=== PATIENT | male | born 1935 | race Caucasian/White ===

== ENCOUNTER 2017-05-20 09:02 | Day surgery (SDC) | payer MEDICARE, OTHER ==
[2017-05-16 14:24] VITALS: BMI 29.7
[~2017-05-20 09:02] MED LIST: DEXAMETHASONE SOD PHOSPHATE 10 MG/ML 1 ML VIAL IV ONE; LACTATED RINGERS 1,000 ML IV SCH; LIDOCAINE 1% 20 ML VIAL (10MG/ML) FOR IV START INTRADERMA PRN; ONDANSETRON 4 MG/2 ML VIAL IVP ONE
[2017-05-20 11:06] VITALS: RESP 16; TEMP 97.9
[2017-05-20] MEDS: FLURBIPROFEN 0.03% OPHTH DROPS 2.5 ML BTL OP ONE ×3 (11:06→11:24)
[2017-05-20] MEDS: CYCLOPENTOLATE 1% OPHTH SOLN 2 ML BTL OP ONE ×3 (11:09→11:27)
[2017-05-20] MEDS: PHENYLEPHRINE 10% OPHTH DROPS 5 ML BTL OP ONE ×3 (11:12→11:30)
[2017-05-20] MEDS ORDERED: PROPOFOL 10 MG/ML 20 ML VIAL IV ONE (12:09)
[2017-05-20] MEDS ORDERED: LIDOCAINE 1% INJ 10MG/ML (20 ML MDV) ONE (12:09)
[2017-05-20] MEDS ORDERED: BALANCED SALT IRRIG SOLN COMB2 15 ML IRRIG.SOLN INTRAOCULA ONE (12:13)
[2017-05-20] MEDS ORDERED: HYALURONATE SODIUM INTRAOCULAR 1 EACH SYRINGE (10MG/ML) INTRAOCULA ONE (12:13)
[2017-05-20] MEDS ORDERED: EPINEPHrine (PF) 0.5 ML in BALANCED SALT IRRIG SOLN COMB2 500 ML IRRIGATION ONE (12:14)
--- NOTE | 2017-05-20 12:28 | P.OP ---
Date of Procedure: 05/20/17 Procedure(s) Performed: PREOPERATIVE DIAGNOSIS: Cataract, right eye. POSTOPERATIVE DIAGNOSIS: Cataract, right eye. OPERATION: Phacoemulsification cataract, right eye. DESCRIPTION OF PROCEDURE: The patient was taken to the preoperative holding area. Intravenous Propofol was given so as to bring about adequate sedation. The following mixture was given for local anesthesia: 5 mL of 2% lidocaine, 5 mL of 0.75% Marcaine, and 1 mL of Wydase. Approximately 4 mL was injected in the retrobulbar space of the surgical eye. Additional 1 mL was then directed to the temporal area of the surgical eye. This was performed to allow adequate neurological block of the facial muscles. The patient was revived and then taken into the operative room. The patient was prepped and draped in the usual sterile manner for the operative eye. A lid speculum was put into position. The conjunctiva was resected back from the limbus in the 12 o'clock position. Bleeding was controlled with electrocautery. A #69 blade was then used and a half-thickness scleral incision approximately 1-mm posterior to the limbus was made on bare sclera. This was shelved in the clear cornea using a crescent knife. Next a 15-degree blade was used to make a stab incision at the 3 o' clock position at the corneolimbal interface. Keratome blade was then used and the superior wound was extended into the anterior chamber. Viscoelastic was injected into the anterior chamber and to maintain its form. Next, a cystotome was used and a continuous anterior capsulotomy was made without difficulty. Hydrodissection using a blunt cannula and BSS was performed. Phaco probe was then employed and a groove extending from 12 to 6 o'clock in the lens was created. A Markie wand was used through the stab incision so as to perform a divide and conquer technique. Next an irrigation aspiration probe was utilized and any residual cortex was removed from the eye. Again, viscoelastic was injected into the anterior chamber. An Al posterior chamber lens implant was placed in the cartridge and injected into the anterior chamber without difficulty. The Sin[employer] hook was utilized to spin the lens into position and this was again performed without any difficulty. The irrigation and aspiration probe was again employed and any residual viscoelastic was removed from the eye. Then BSS was injected into the limbal stab incision and the anterior chamber re-inflated. The conjunctiva was reapproximated using electrocautery. One drop of 0.25% Timoptic was placed over the corneal along with TobraDex ophthalmic ointment. Two sterile patches and a Moore eye shield were taped into position. The patient was transported to the recovery room in stable condition. Pathology: none sent Condition: stable Disposition: same day
[2017-05-20 12:45] VITALS: BP 158/73; PULSE 63
[2017-05-20] MEDS ORDERED: TIMOLOL 0.5% OPHTH DROPS 5 ML BTL OP ONE (23:00)
[2017-05-20] MEDS ORDERED: GENTAMICIN/PREDNISOL AC OPHTH OINT 3.5GM OPHTHALMIC ONE (23:00)
[2017-05-20] MEDS ORDERED: BUPIVACAINE (PF) 0.75% 5 ML, HYALURONIDASE, HUMAN RECOMB 150 UNIT, LIDOCAINE 2% (PF) 10... MISCELLANE ONE ×3 (23:00)
== END 2017-05-20 13:05 | disposition home or self-care (01) ==
LOC: OR 09:02
PROVIDERS: ATTEND Ophthalmology
DX: H26.9 Unspecified cataract (principal); I10 Essential (primary) hypertension; M19.90 Unspecified osteoarthritis, unspecified site; Z85.46 Personal history of malignant neoplasm of prostate; Z95.5 Presence of coronary angioplasty implant and graft; I25.2 Old myocardial infarction; I25.10 Atherosclerotic heart disease of native coronary artery without angina pectoris; Z87.891 Personal history of nicotine dependence; Z79.82 Long term (current) use of aspirin; Z79.899 Other long term (current) drug therapy
CPT/HCPCS: 66984; V2632; J3470; J2001 ×2; J0171; J2704

== ENCOUNTER 2017-07-01 07:40 | Day surgery (SDC) | payer MEDICARE, OTHER ==
[2017-06-26 09:45] VITALS: BMI 30.1
[~2017-07-01 07:40] MED LIST changes: -DEXAMETHASONE SOD PHOSPHATE 10 MG/ML 1 ML VIAL IV ONE; -ONDANSETRON 4 MG/2 ML VIAL IVP ONE
[2017-07-01] MEDS: CYCLOPENTOLATE 1% OPHTH SOLN 2 ML BTL OP ONE ×3 (08:22→08:42)
[2017-07-01] MEDS: FLURBIPROFEN 0.03% OPHTH DROPS 2.5 ML BTL OP ONE ×3 (08:25→08:45)
[2017-07-01 08:27] VITALS: RESP 16; TEMP 98.1
[2017-07-01] MEDS: PHENYLEPHRINE 10% OPHTH DROPS 5 ML BTL OP ONE ×3 (08:29→08:48)
[2017-07-01] MEDS ORDERED: PROPOFOL 10 MG/ML 20 ML VIAL IV ONE (09:19)
[2017-07-01] MEDS ORDERED: LIDOCAINE 1% INJ 10MG/ML (20 ML MDV) ONE (09:19)
[2017-07-01] MEDS ORDERED: EPINEPHrine (PF) 0.5 ML in BALANCED SALT IRRIG SOLN COMB2 500 ML IRRIGATION ONE (09:24)
[2017-07-01] MEDS ORDERED: BALANCED SALT IRRIG SOLN COMB2 15 ML IRRIG.SOLN INTRAOCULA ONE (09:26)
[2017-07-01] MEDS ORDERED: HYALURONATE SODIUM INTRAOCULAR 1 EACH SYRINGE (10MG/ML) INTRAOCULA ONE (09:26)
--- NOTE | 2017-07-01 09:43 | P.OP ---
Date of Procedure: 07/01/17 Procedure(s) Performed: PREOPERATIVE DIAGNOSIS: Cataract, left eye. POSTOPERATIVE DIAGNOSIS: Cataract, left eye. OPERATION: Phacoemulsification cataract, left eye. DESCRIPTION OF PROCEDURE: The patient was taken to the preoperative holding area. Intravenous Propofol was given so as to bring about adequate sedation. The following mixture was given for local anesthesia: 5 mL of 2% lidocaine, 5 mL of 0.75% Marcaine, and 1 mL of Wydase. Approximately 4 mL was injected in the retrobulbar space of the surgical eye. Additional 1 mL was then directed to the temporal area of the surgical eye. This was performed to allow adequate neurological block of the facial muscles. The patient was revived and then taken into the operative room. The patient was prepped and draped in the usual sterile manner for the operative eye. A lid speculum was put into position. The conjunctiva was resected back from the limbus in the 12 o'clock position. Bleeding was controlled with electrocautery. A #69 blade was then used and a half-thickness scleral incision approximately 1-mm posterior to the limbus was made on bare sclera. This was shelved in the clear cornea using a crescent knife. Next a 15-degree blade was used to make a stab incision at the 3 o' clock position at the corneolimbal interface. Keratome blade was then used and the superior wound was extended into the anterior chamber. Viscoelastic was injected into the anterior chamber and to maintain its form. Next, a cystotome was used and a continuous anterior capsulotomy was made without difficulty. Hydrodissection using a blunt cannula and BSS was performed. Phaco probe was then employed and a groove extending from 12 to 6 o'clock in the lens was created. A Markie wand was used through the stab incision so as to perform a divide and conquer technique. Next an irrigation aspiration probe was utilized and any residual cortex was removed from the eye. Again, viscoelastic was injected into the anterior chamber. An Al posterior chamber lens implant was placed in the cartridge and injected into the anterior chamber without difficulty. The [employer] hook was utilized to spin the lens into position and this was again performed without any difficulty. The irrigation and aspiration probe was again employed and any residual viscoelastic was removed from the eye. Then BSS was injected into the limbal stab incision and the anterior chamber re-inflated. The conjunctiva was reapproximated using electrocautery. One drop of 0.25% Timoptic was placed over the corneal along with TobraDex ophthalmic ointment. Two sterile patches and a Moore eye shield were taped into position. The patient was transported to the recovery room in stable condition. Pathology: none sent Condition: stable Disposition: same day
[2017-07-01 09:58] VITALS: BP 134/82; PULSE 72
[2017-07-01] MEDS ORDERED: BUPIVACAINE (PF) 0.75% 5 ML, HYALURONIDASE, HUMAN RECOMB 150 UNIT, LIDOCAINE 2% (PF) 10... MISCELLANE ONE ×3 (23:00)
[2017-07-01] MEDS ORDERED: GENTAMICIN/PREDNISOL AC OPHTH OINT 3.5GM OPHTHALMIC ONE (23:00)
[2017-07-01] MEDS ORDERED: TIMOLOL 0.5% OPHTH DROPS 5 ML BTL OP ONE (23:00)
== END 2017-07-01 10:15 | disposition home or self-care (01) ==
LOC: OR 07:40
PROVIDERS: ATTEND Ophthalmology
DX: H25.12 Age-related nuclear cataract, left eye (principal); I25.10 Atherosclerotic heart disease of native coronary artery without angina pectoris; M19.90 Unspecified osteoarthritis, unspecified site; E78.5 Hyperlipidemia, unspecified; I10 Essential (primary) hypertension; Z85.46 Personal history of malignant neoplasm of prostate; K21.9 Gastro-esophageal reflux disease without esophagitis; Z95.5 Presence of coronary angioplasty implant and graft; Z79.899 Other long term (current) drug therapy; Z79.82 Long term (current) use of aspirin; Z87.891 Personal history of nicotine dependence
CPT/HCPCS: 66984; V2632; J3470; J2001 ×2; J0171; J2704

== ENCOUNTER → 2019-01-22 | Outpatient (CLI) | payer MEDICARE, OTHER ==
[2019-01-22 11:47] LABS: African American GFR (CKD) >90 (>60 ml/min/1.73 sqM); Anion Gap 9 mmol/L; Blood Urea Nitrogen 23 mg/dL (9-20); Calcium 9.3 mg/dL (8.4-10.2); Carbon Dioxide 27 mmol/L (22-30); Chloride 104 mmol/L (98-107); Glucose 109 mg/dL (74-99); Non-African American GFR(CKD) 80 (>60 ml/min/1.73 sqM); Potassium 3.6 mmol/L (3.5-5.1); Sodium 140 mmol/L (137-145)
[2019-01-22 12:07] LABS: Basophils % (A) 0 %; Eosinophils # (A) 0.1 k/uL (0-0.7); Eosinophils % (A) 2 %; HCT 39.7 % (39.0-53.0); HGB 13.6 gm/dL (13.0-17.5); Lymphocytes # (A) 0.7 k/uL (1.0-4.8); Lymphocytes % (A) 15 %; MCH 28.6 pg (25.0-35.0); MCHC 34.4 g/dL (31.0-37.0); MCV 83.3 fL (80.0-100.0); Mean Platelet Volume 8.2; Monocytes # (A) 0.2 k/uL (0-1.0); Monocytes % (A) 5 %; Neutrophils # (A) 3.4 k/uL (1.3-7.7); Neutrophils % (A) 76 %; Platelet Count 115 k/uL (150-450); RBC 4.76 m/uL (4.30-5.90); RDW 14.3 % (11.5-15.5); WBC 4.4 k/uL (3.8-10.6)
[2019-01-22 12:29] LABS: Appearance,Urine Cloudy (Clear); Bilirubin,Urine Negative (Negative); Blood,Urine Large (Negative); Color,Urine Yellow; Glucose,Urine (UA) Negative (Negative); Hyaline Casts,Urine 3 /lpf (0-2); Ketones,Urine Negative (Negative); Leukocyte Esterase,Urine Trace (Negative); Mucus,Urine Rare /hpf; Nitrite,Urine Negative (Negative); Protein,Urine 2+ (Negative); RBC,Urine >182 /hpf (0-5); Specific Gravity,Urine 1.019 (1.001-1.035); Urobilinogen,Urine <2.0 mg/dL (<2.0); WBC,Urine 8 /hpf (0-5)
== END ==
LOC: LABPAT 10:45
PROVIDERS: ATTEND Urology
DX: Z01.812 Encounter for preprocedural laboratory examination (principal); N35.014 Post-traumatic urethral stricture, male, unspecified; R31.0 Gross hematuria
CPT/HCPCS: 80048; 81001; 85025; 87086

== ENCOUNTER → 2019-01-25 | Day surgery (SDC) | payer MEDICARE, OTHER ==
--- NOTE | 2019-01-24 19:49 | P.GSHP ---
History of Present Illness H&P Date: 01/24/19 83 yo male recently was seen at [facility] er for urine retention. I was unable to pass anything into his bladder transurethrally even under cystoscopic guidance. I ended up placing a sp tube he has a history of ebrt for prostate cancer several years ago He has been having problems for a couple of months. He comes for an anesthetic cystoscopy and hopeful reestablishment of a urethral channel. He understands that if I cannot I will have to place a more permanent suprapubic tube with eventual referral to a reconstructive surgeon - Constitutional Constitutional: Denies chills, Denies fever - EENT Eyes: denies blurred vision, denies pain Ears, nose, mouth and throat: Denies headache, Denies sore throat - Cardiovascular Cardiovascular: Denies chest pain, Denies shortness of breath - Respiratory Respiratory: Denies cough, Denies 7 - Gastrointestinal Gastrointestinal: Denies abdominal pain, Denies diarrhea, Denies nausea, Denies vomiting - Genitourinary (Female) Genitourinary: Denies dysuria, Denies hematuria - Genitourinary (Male) Genitourinary: Denies dysuria, Denies hematuria - Musculoskeletal Musculoskeletal: Denies myalgias - Integumentary Integumentary: Denies pruritus, Denies rash - Neurological Neurological: Denies numbness, Denies weakness - Psychiatric Psychiatric: Denies anxiety, Denies depression - Endocrine Endocrine: Denies fatigue, Denies weight change Past Medical History Past Medical History: Coronary Artery Disease (CAD), Cancer, Chest Pain / Angina, Eye Disorder, GERD/Reflux, Hyperlipidemia, Memory Impairment, Myocardial Infarction ([place]), Osteoarthritis (OA) Additional Past Medical History / Comment(s): SUPRA PUBIC CATH PLACE IN @ [facility] ON 01/19/19. Prostate Cancer 3 yrs ago, cataracts. Last Myocardial Infarction Date:: 1994 History of Any Multi-Drug Resistant Organisms: None Reported Past Surgical History: Heart Catheterization With Stent, Orthopedic Surgery Additional Past Surgical History / Comment(s): LEFT CATARACT & IMPLANT ON 07/01/17.LEFT HAND SX. "whole in esophageous repaired. 4 stents put in heart." Past Anesthesia/Blood Transfusion Reactions: No Reported Reaction Date of Last Stent Placement:: 01/14/14 Past Psychological History: No Psychological Hx Reported Smoking Status: Former smoker Past Alcohol Use History: None Reported Additional Past Alcohol Use History / Comment(s): Quit smoking in 1966. STATES STOPPED DRINKING 31 yrs ago. Past Drug Use History: None Reported - Past Family History Mother Family Medical History: Cancer Additional Family Medical History / Comment(s): LEUKEMIA Father Family Medical History: Cancer Additional Family Medical History / Comment(s): LUNG Medications and Allergies Home Medications Medication Instructions Recorded Confirmed Type Simvastatin [Zocor] 20 mg PO 1200 01/12/14 01/22/19 History Isosorbide Dinitrate 10 mg PO BID 01/14/14 01/22/19 History Nitroglycerin Sl Tabs [Nitrostat] 0.4 mg SUBLINGUAL Q5M PRN #25 tab 01/15/14 01/22/19 Rx Metoprolol Succinate (ER) [Toprol 25 mg PO HS 05/16/17 01/22/19 History Xl] Tamsulosin [Flomax] 0.4 mg PO BID 05/16/17 01/22/19 History Multivitamins, Thera [Multivitamin 1 tab PO DAILY 01/22/19 01/22/19 History (formulary)] Omeprazole 20 mg PO 1200 01/22/19 01/22/19 History Allergies Allergy/AdvReac Type Severity Reaction Status Date / Time No Known Allergies Allergy Verified 01/22/19 12:43 Surgical - Exam - General well developed, well nourished, no distress - Eyes PERRL - ENT no hearing loss - Neck trachea midline - Respiratory normal expansion, normal respiratory effort - Cardiovascular Rhythm: regular - Abdomen suprapubic tube Abdomen: soft, non tender - Genitourinary normal penis with no external lesions, testicles present - Integumentary no rash - Neurologic normal coordination, normal sensation - Musculoskeletal normal gait, normal posture - Psychiatric oriented to time, oriented to person, oriented to place, speech is normal, memory intact Assessment and Plan Assessment: Impression: Urine retention due to presumed urethral stricture. Prostate cancer sp ebrt Plan: cysto with hopeful dviu. Possible permanent sp tube
[~2019-01-25] MED LIST changes: +AMPICILLIN 1,000 MG in SODIUM CHLORIDE 0.9% 50 ML IVPB ONE; +DEXAMETHASONE SOD PHOSPHATE 10 MG/ML 1 ML VIAL IV ONE; +GENTAMICIN 110 MG in SODIUM CHLORIDE 0.9% 100 ML IVPB ONE; +HYDROmorphone 0.5 MG/0.5 ML SYRINGE IVP PRN; +LIDOCAINE 1% 20 ML VIAL (10MG/ML) FOR IV START INTRADERMA ONE; -LIDOCAINE 1% 20 ML VIAL (10MG/ML) FOR IV START INTRADERMA PRN; +LIDOCAINE 1% INJ 10MG/ML (20 ML MDV) ONE; +MIDAZOLAM 2 MG/2 ML VIAL IV PRN; +MIDAZOLAM 2 MG/2 ML VIAL ONE; +ONDANSETRON 4 MG/2 ML VIAL IVP ONE; +PROPOFOL 10 MG/ML 20 ML VIAL IV ONE; +SUCCINYLCHOLINE CHLORIDE 100 MG/5 ML SYR IV ONE; +fentaNYL (PF) 50 MCG/ML 2 ML AMP ONE
[2019-01-25 13:32] VITALS: RESP 16
--- NOTE | 2019-01-25 14:41 | P.OP ---
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 He was in [facility] emergency room recently with urine retention. I was unable to pass a urethral catheter even under cystoscopic direction. He has a history of radiation therapy for prostate cancer. He has been having problems urinating over the last month. It is been 5 days since the emergency room visit. Hopefully the edema settle down and that we'll be able to identify urethral passage and do a direct vision internal urethrotomy Description of Procedure: Patient brought the operating suite. He is given a general endotracheal anesthesia. He's placed lithotomy position with sterile prep and drape. Under direct vision the 20-Kyrgyz sheath for the direct vision urethrotome was introduced in urethra. With the Foroblique lens and passed into the deep bulbar urethra and there is a stricture that is identified. Through the stricture no 35 wires passed into the bladder. I then make a cut at 12:00 in the proximal bulbar urethra. I then pass into the bladder. He's had a previous TURP. There is some vesicle neck contracture that is mild. I am of the bladder and there is catheter edema from the suprapubic tube. I then back into the urethrotomy site and cut to make sure the cut is deep enough. I then remove the urethrotome. I passed an 18-Kyrgyz Zazueta catheter in the bladder with clear urine return. A irrigate freely. I removed the suprapubic tube. The suprapubic tube will remain in approximately 1 week and I'll remove the office.
[2019-01-25 14:46] VITALS: TEMP 98
[2019-01-25 15:57] VITALS: BP 156/88; PULSE 79
== END | disposition home or self-care (01) ==
LOC: OR 13:00
PROVIDERS: ATTEND Urology
DX: N35.011 Post-traumatic bulbous urethral stricture (principal); E78.5 Hyperlipidemia, unspecified; K21.9 Gastro-esophageal reflux disease without esophagitis; I10 Essential (primary) hypertension; R41.3 Other amnesia; I25.10 Atherosclerotic heart disease of native coronary artery without angina pectoris; M19.90 Unspecified osteoarthritis, unspecified site; I25.2 Old myocardial infarction; Z85.46 Personal history of malignant neoplasm of prostate; Z92.3 Personal history of irradiation; Z95.5 Presence of coronary angioplasty implant and graft; Z98.42 Cataract extraction status, left eye; Z96.1 Presence of intraocular lens; Z87.891 Personal history of nicotine dependence; Z80.6 Family history of leukemia; Z80.1 Family history of malignant neoplasm of trachea, bronchus and lung; Z79.899 Other long term (current) drug therapy; N35.014 Post-traumatic urethral stricture, male, unspecified
CPT/HCPCS: 52276; C1769; J2250; J1100; J2405; J2001; J3010; J1580; J0330; J2704

== ENCOUNTER → 2019-05-14 | Day surgery (SDC) | payer MEDICARE, OTHER | CPT/HCPCS: 88305; 43239; J2001; J2704 ==

== ENCOUNTER → 2019-12-30 | Outpatient (CLI) | payer MEDICARE, OTHER ==
--- NOTE | 2019-12-30 15:43 | CT ---
EXAMINATION TYPE: CT angio neck DATE OF EXAM: 12/30/2019 COMPARISON: None HISTORY: 84-year-old male headache and dizziness TECHNIQUE: Contiguous axial scanning of the neck performed with IV Contrast, patient injected with 65 mL of Isovue 370. Coronal/sagittal MIP reconstructions performed. 3-D reconstructions generated on a dedicated independent workstation. CT DLP: 344.9 mGycm Automated exposure control for dose reduction was used. FINDINGS: Tiny calcified granuloma at the right apex. Mild to moderate atherosclerotic calcifications aortic arch with conventional arch vessel branching a natomy. The cervical vertebral arteries are codominant and patent throughout the course. However, the V4 segment right vertebral artery shows moderate irregular narrowing throughout. Possibl e more severe focal narrowing along its midportion. The right common carotid artery is patent. Minimal atherosclerotic changes at the right carotid bifurcation. Tortuous upper right ICA taking a retropharyngeal course. No significant stenosis. Mild atherosclerot ic narrowing within the intracranial carotid siphon. Left common carotid artery is patent. However, severe atherosclerotic plaque and calcification at the left carotid bifurcation resulting in severe, 90% stenosis at the left ICA origin and also severe narrowing at the left ECA origin. The remainder of the left common carotid artery is patent though there is moderate atherosclerotic na rrowing throughout the left carotid siphon. The left carotid bifurcation occurs 3 cm below the angle of the mandible. Diffusely heterogeneous and bulky thyroid gland. This can be further evaluated with dedicated thyroid ultrasound. There is suggestion of a heterogeneous 2.4 cm nodule posteriorly in the left lobe. Bulky anterior endplate spondylosis from C4 through C7 levels impressing on to the posterior wall of the cervical esophagus. IMPRESSION: 1. 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 ADDITIONAL SEVERE NARROWING AT THE LEFT ECA ORIGIN. 2. MODERATE IRREGULAR NARROWING OF THE V4 (INTRACRANIAL) SEGMENT RIGHT VERTEBRAL ARTERY POSSIBLY WITH A MORE SEVERE SHORT SEGMENT STENOSIS OF ITS MID PORTION.
== END | disposition home or self-care (01) ==
LOC: RADCTMAIN 12:48
PROVIDERS: ATTEND Internal Medicine Cardiovascular Disease
DX: I65.22 Occlusion and stenosis of left carotid artery (principal); I65.01 Occlusion and stenosis of right vertebral artery; I25.10 Atherosclerotic heart disease of native coronary artery without angina pectoris
CPT/HCPCS: 82565; 84520; 70498; 36415; Q9967

== ENCOUNTER 2020-01-19 12:30 | Inpatient (IN) | payer MEDICARE, OTHER ==
[2020-01-21 09:49] VITALS: BMI 29.4
[2020-01-25] MEDS ORDERED: SODIUM CHLORIDE 0.9% 1,000 ML in EMPTY BAG 1 BAG IV ONE (07:11)
[2020-01-25] MEDS ORDERED: NITROGLYCERIN SL TABS 0.4 MG TAB SUBLINGUAL PRN ×2 (07:11→12:29)
[2020-01-25] MEDS ORDERED: ASPIRIN 325 MG TAB PO PRN (07:11)
[2020-01-25] MEDS ORDERED: CLOPIDOGREL 75 MG TAB PO PRN (07:11)
[2020-01-25] MEDS ORDERED: SODIUM CHLORIDE 0.9% 1,000 ML IV ONE (08:58)
[2020-01-25 09:10] LABS: Basophils % (A) 0 %; Eosinophils # (A) 0.2 k/uL (0-0.7); Eosinophils % (A) 3 %; HGB 15.4 gm/dL (13.0-17.5); Lymphocytes # (A) 1.2 k/uL (1.0-4.8); Lymphocytes % (A) 22 %; MCH 28.2 pg (25.0-35.0); MCHC 34.3 g/dL (31.0-37.0); MCV 82.1 fL (80.0-100.0); Mean Platelet Volume 8.9; Monocytes # (A) 0.4 k/uL (0-1.0); Monocytes % (A) 6 %; Neutrophils # (A) 3.7 k/uL (1.3-7.7); Neutrophils % (A) 66 %; Platelet Count 147 k/uL (150-450); RBC 5.47 m/uL (4.30-5.90); RDW 13.8 % (11.5-15.5); WBC 5.5 k/uL (3.8-10.6)
[2020-01-25 09:36] LABS: Calcium 9.2 mg/dL (8.4-10.2); Potassium 4.3 mmol/L (3.5-5.1)
[2020-01-25] MEDS ORDERED: CLOPIDOGREL 75 MG TAB PO STA (10:09)
[2020-01-25] MEDS ORDERED: LIDOCAINE 1% INJ 10MG/ML (20 ML MDV) SQ ONE (11:16)
[2020-01-25] MEDS ORDERED: HEPARIN SODIUM 1,000 UN/ML (10ML VL) IV ONE (11:24)
[2020-01-25] MEDS ORDERED: NITROGLYCERIN 1000MCG/10ML SYRINGE INTRAARTER ONE (12:16)
[2020-01-25] MEDS ORDERED: RX INFO: IV CONTRAST WAS GIVEN 1 EACH MISC MISCELLANE PRN (12:30)
[2020-01-25] MEDS ORDERED: SODIUM CHLORIDE 0.9% 1,000 ML IV SCH (12:30)
[2020-01-25] MEDS ORDERED: MAG HYDROX/AL HYDROX/SIMETH 30 ML CUP PO PRN (12:30)
[2020-01-25] MEDS ORDERED: ATROPINE SULFATE 0.1 MG/ML 10ML SYRINGE IV PRN (12:30)
[2020-01-25] MEDS ORDERED: IOPAMIDOL-370 125ML BTL INJ ONE (12:38)
--- NOTE | 2020-01-25 15:43 | PCN ---
PROCEDURE NOTE CAROTID STENT PROCEDURE: PERFORMING PHYSICIAN: Tim Sotelo M.D. PROCEDURE PERFORMED: 1. Successful stenting of the left internal carotid artery using an 8-6 mm by 30 mm Xact self-expandable stent with adjunctive use of Emboshield NAV6 distal protection filter. 2. Successful stenting of the left common carotid artery using 7.0 x 30 and 7.0 x 59 mm stents with good angiographic results. 3. Selective left internal and left common carotid artery angiogram. 4. Aortic arch angiogram. INDICATION: This is an 84-year-old gentleman who sees Dr. 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 APPROACH: Right common femoral artery. COMPLICATIONS: Dissection of the left common carotid artery which was stabilized using 2 stents. LEVEL OF SEDATION: The patient's procedure was performed without any sedation, with a procedure length of 72 minutes. PROCEDURE DESCRIPTION: After obtaining informed consent, the patient was brought to the cardiac geophysical laboratory chief. The right common femoral artery was cannulated using micropuncture technique. The micropuncture wire passed easily. Then I placed a 70 cm 6-Thai sheath in the right common femoral artery all the way to the descending aorta. That was performed over an 0.035 stiff Glidewire. Subsequently I did an aortic arch angiogram using a 5-Thai pigtail catheter. The aortic arch angiogram revealed a calcified arch with type 2 arch. Subsequently anticoagulation was achieved using heparin. The patient was given a total of 10,000 units of heparin with continuous ACT monitoring throughout the procedure. Subsequently I engaged the left common carotid artery using a JB2 catheter. After that it was wired using an 0.035 stiff Glidewire. After that I advanced the sheath over the wire and JB2 catheter all the way to the mid left common carotid artery. 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 Because the patient was asymptomatic, I decided to stent the left internal carotid artery first. So I did place a 5 mm Emboshield NAV6 distal protection filter. Subsequently I did predilatation using a 4 mm balloon and then I deployed the Xact 8-6 x 30 mm self-expandable stent where the stent was positioned under fluoroscopic guidance and deployed under fluoroscopic guidance. Post dilatation was performed using a 5 x 20 mm balloon. The following angiogram showed good angiographic results. For the left common carotid artery where the dissection was, I deployed initially a 7 x 30 mm Acculink self-expandable stent. The stent was again positioned under fluoroscopic guidance and deployed under fluoroscopic guidance. The following angiogram showed an area of dissection just proximal to the stent, on which I decided to use this time a balloon-expandable stent. I used a 7 x 59 mm Omnilink. The second stent was deployed under fluoroscopic guidance as well. The following angiogram showed good angiographic results, and the procedure at that point was completed without any complication. POST-PROCEDURE MANAGEMENT: 1. Dual anti-platelet therapy. 2. Risk factor modifications. 3. Follow up with the patient. MMARLEN / PATRICIAN: [id number] /
--- NOTE | 2020-01-25 16:57 | IR ---
EXAMINATION TYPE: IR angio carotid cerv LT DATE OF EXAM: 01/25/2020 COMPARISON: CTA neck 12/30/2019 HISTORY: Left carotid stenosis TECHNIQUE: Fluoroscopy. FINDINGS: Fluoroscopic guidance was provided during procedure performed by Dr. Sotelo. A total of 20. 7 minutes of fluoroscopic time was utilized during the procedure and 778 images were acquired. Please see operative report for additional details. IMPRESSION: As Above.
[2020-01-25] MEDS: ISOSORBIDE DINITRATE 10 MG TAB PO SCH (20:30)
[2020-01-25] MEDS ORDERED: ATORVASTATIN 40 MG TAB PO SCH (21:00)
[2020-01-26 03:28] VITALS: RESP 18
[2020-01-26 08:54] VITALS: PULSE 83; TEMP 97.5
[2020-01-26] MEDS: ISOSORBIDE DINITRATE 10 MG TAB PO SCH (08:56)
[2020-01-26] MEDS ORDERED: MULTIVITAMINS, THERA 1 EACH TAB PO SCH (09:00)
[2020-01-26] MEDS ORDERED: ASPIRIN 325 MG TAB PO SCH (09:00)
[2020-01-26] MEDS ORDERED: TAMSULOSIN 0.4 MG CAP.ER.24H PO SCH (09:00)
[2020-01-26] MEDS ORDERED: ASPIRIN 81 MG PO SCH (09:00)
[2020-01-26 09:04] VITALS: BP 150/62
[2020-01-26 10:15] LABS: Basophils % (A) 0 %; Eosinophils # (A) 0.2 k/uL (0-0.7); Eosinophils % (A) 3 %; HCT 40.4 % (39.0-53.0); HGB 13.7 gm/dL (13.0-17.5); Lymphocytes # (A) 0.7 k/uL (1.0-4.8); Lymphocytes % (A) 12 %; MCV 82.3 fL (80.0-100.0); Monocytes # (A) 0.3 k/uL (0-1.0); Monocytes % (A) 6 %; Neutrophils # (A) 4.6 k/uL (1.3-7.7); Neutrophils % (A) 77 %; Platelet Count 125 k/uL (150-450); RDW 13.9 % (11.5-15.5); WBC 5.9 k/uL (3.8-10.6)
[2020-01-26 10:18] LABS: Calcium 9.1 mg/dL (8.4-10.2); Potassium 4.2 mmol/L (3.5-5.1)
--- NOTE | 2020-01-26 10:57 | DS ---
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 He underwent yesterday successful stenting of the left internal and left common carotid artery with an excellent angiographic results and without any complication from right groin approach. The patient was seen this morning. He is asymptomatic. He is going to be discharged on dual anti-platelet therapy along with high intensity statin and will follow up with the patient in the office. MMODL / IJN: [id number] /
[2020-01-26] MEDS ORDERED: PANTOPRAZOLE 40 MG TABLET PO SCH (12:00)
[2020-01-26] MEDS ORDERED: NON FORMULARY DRUG (Simvastatin [Zocor] 20 MG Tablet) PO SCH (12:00)
[2020-01-26] MEDS ORDERED: CLOPIDOGREL 75 MG TAB PO SCH (12:30)
== END 2020-01-26 11:03 | disposition home or self-care (01) | DRG 34 ==
LOC: 2ORMAIN 01-25 08:44 → 3SCARD 01-25 16:47
PROVIDERS: ADMIT Internal Medicine Interventional Cardiology; ATTEND Internal Medicine Interventional Cardiology
PROC: B3141ZZ Fluoroscopy of Left Common Carotid Artery using Low Osmolar Contrast (ICD-10-PCS; principal; 2020-01-25 10:30)
PROC: 037J3DZ Dilation of Left Common Carotid Artery with Intraluminal Device, Percutaneous Approach (ICD-10-PCS; principal; 2020-01-25 10:30)
PROC: B3171ZZ Fluoroscopy of Left Internal Carotid Artery using Low Osmolar Contrast (ICD-10-PCS; principal; 2020-01-25 10:30)
PROC: 037L3DZ Dilation of Left Internal Carotid Artery with Intraluminal Device, Percutaneous Approach (ICD-10-PCS; principal; 2020-01-25 10:30)
DX: I65.22 Occlusion and stenosis of left carotid artery (principal); I77.71 Dissection of carotid artery; I97.89 Other postprocedural complications and disorders of the circulatory system, not elsewhere classified; I25.10 Atherosclerotic heart disease of native coronary artery without angina pectoris; I10 Essential (primary) hypertension; E78.5 Hyperlipidemia, unspecified; E78.00 Pure hypercholesterolemia, unspecified; Z79.899 Other long term (current) drug therapy
CPT/HCPCS: 80048; 85025

== ENCOUNTER 2020-09-02 13:18 | Emergency (ER) | payer MEDICARE, OTHER ==
[2020-09-02 13:25] VITALS: BP 126/89; PULSE 88; RESP 16; TEMP 97.5
[2020-09-02] MEDS ORDERED: DIPH,PERTUS(ACELL)TETVAC-LF 0.5 ML VIAL IM ONE (13:30)
[2020-09-02] MEDS ORDERED: BACITRACIN OINT 1 EACH PACKET TOPICAL ONE (13:30)
--- NOTE | 2020-09-02 14:00 | ED ---
Fall HPI - General Chief Complaint: Fall Stated Complaint: fall Time Seen by Provider: 09/02/20 13:25 Source: patient, RN notes reviewed Mode of arrival: ambulatory Limitations: no limitations - History of Present Illness Initial Comments: This is a 85-year-old male presents emergency Department chief complaint of fall. Patient states she is walking down a steep health rocks in which he slipped. Patient states he stumbled approximately 10 feet. Patient states that he is unsure when his last tetanus was. Patient has multiple abrasions, superficial lacerations. Patient complains of headache, facial discomfort, bilateral hand pain, right hip pain, left knee pain he was able to ambulate there was no loss conscious. No chest pain or shortness breath. - Related Data Home Medications Medication Instructions Recorded Confirmed Simvastatin [Zocor] 20 mg PO 1200 01/12/14 01/25/20 Isosorbide Dinitrate 10 mg PO BID 01/14/14 01/25/20 Metoprolol Succinate (ER) [Toprol 25 mg PO HS 05/16/17 01/25/20 XL] Tamsulosin [Flomax] 0.4 mg PO DAILY 05/16/17 01/25/20 Multivitamins, Thera [Multivitamin 1 tab PO DAILY 01/22/19 01/25/20 (formulary)] Omeprazole 20 mg PO 1200 01/22/19 01/25/20 Aspirin [Adult Low Dose Aspirin EC] 81 mg PO DAILY 01/21/20 01/25/20 Previous Rx's Medication Instructions Recorded Nitroglycerin Sl Tabs [Nitrostat] 0.4 mg SUBLINGUAL Q5M PRN #25 tab 01/15/14 Clopidogrel Bisulfate [Plavix] 75 mg PO DAILY #90 tab 01/26/20 Allergies Allergy/AdvReac Type Severity Reaction Status Date / Time No Known Allergies Allergy Verified 09/02/20 13:21 Review of Systems ROS Statement: Those systems with pertinent positive or pertinent negative responses have been documented in the HPI. ROS Other: All systems not noted in ROS Statement are negative. Past Medical History Past Medical History: Coronary Artery Disease (CAD), Cancer, Chest Pain / Angina, GERD/Reflux, Hyperlipidemia, Memory Impairment, Myocardial Infarction ([place]), Osteoarthritis (OA) Additional Past Medical History / Comment(s): hx Prostate Cancer, PT rt shoulder r/t injury. 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 LEFT HAND SX. "whole in esophageal repair. 4 stents put in heart." egd Past Anesthesia/Blood Transfusion Reactions: No Reported Reaction Date of Last Stent Placement:: 01/14/14 Past Psychological History: No Psychological Hx Reported Smoking Status: Former smoker - Past Family History Mother Family Medical History: Cancer Additional Family Medical History / Comment(s): LEUKEMIA Father Family Medical History: Cancer Additional Family Medical History / Comment(s): LUNG General Exam Limitations: no limitations General appearance: alert, in no apparent distress Head exam: Present: atraumatic, normocephalic, normal inspection, other (Multiple facial abrasions noted) Eye exam: Present: normal appearance, PERRL, EOMI. Absent: scleral icterus, conjunctival injection, periorbital swelling ENT exam: Present: normal exam, mucous membranes moist Neck exam: Present: normal inspection, full ROM. Absent: tenderness, meningismus, lymphadenopathy Respiratory exam: Present: normal lung sounds bilaterally. Absent: respiratory distress, wheezes, rales, rhonchi, stridor, chest wall tenderness Cardiovascular Exam: Present: regular rate, normal rhythm, normal heart sounds. Absent: systolic murmur, diastolic murmur, rubs, gallop, clicks Extremities exam: Present: other (Bilateral hand superficial lacerations, pain with palpation, full range of motion no wrist or forearm or upper arm tenderness. Mild right hip tenderness the patient is in relating, bearing weight. Abrasions noted to the left knee with mild tenderness minimal swelling remaining extremity exam nml) Course Vital Signs 09/02/20 13:21 Temperature 97.5 F L Pulse Rate 88 Respiratory 16 Rate Blood Pressure 126/89 O2 Sat by Pulse 99 Oximetry Medical Decision Making - Medical Decision Making 85-year-old male presented after a fall down a [employer], [employer]. CT of the brain, C- spine, facial bones were negative for acute abnormality. X-rays were reviewed of the hands, pelvis, left knee with no acute fractures. Patient's wounds were cleaned, dressed. Patient we discharged in stable condition with close follow- up. Disposition Clinical Impression: Fall, Head injury, Multiple abrasions, Contusion of knee, left, Contusion of right hip, Contusion of hand(s) Disposition: HOME SELF-CARE Condition: Stable Instructions (If sedation given, give patient instructions): Head Injury (ED) Additional Instructions: Please return to the Emergency Department if symptoms worsen or any other concerns. Is patient prescribed a controlled substance at d/c from ED?: No Referrals: Talha Spencer MD [Primary Care Provider] - 1-2 days Time of Disposition: 14:31
--- NOTE | 2020-09-02 14:03 | XR ---
EXAMINATION TYPE: XR knee complete LT DATE OF EXAM: 09/02/2020 COMPARISON: NONE HISTORY: Left knee pain after fall TECHNIQUE: Radiographs of the left knee FINDINGS: No acute osseous abnormality. Mild tricompartmental OA. Vascular calcifications. Other tendon enthesophyte. Small joint effusion. IMPRESSION: No acute osseous abnormality.
--- NOTE | 2020-09-02 14:13 | XR ---
EXAMINATION TYPE: XR pelvis AP view DATE OF EXAM: 09/02/2020 COMPARISON: NONE HISTORY: Pain TECHNIQUE: Single view FINDINGS: Pelvic ring is intact. Proximal femurs are intact. Acetabula appear intact. Sacroiliac join ts are intact. IMPRESSION: No acute abnormality of the pelvis. No fracture.
--- NOTE | 2020-09-02 14:16 | CT ---
EXAMINATION TYPE: CT brain haim bowser DATE OF EXAM: 09/02/2020 COMPARISON: None Pain HISTORY: Fall CT DLP: 1261.1 mGycm Automated exposure control for dose reduction was used. There is cerebral cortical atrophy. There is no mass effect nor midline shift. There is no sign of in tracranial hemorrhage. There is mild right frontal scalp soft tissue swelling. There is left posterio r frontal scalp hematoma. This measures up to 8 mm in thickness. The calvarium appears intact. There is normal aeration of the mastoid sinuses. Skull base is intact. The cervical vertebra have normal alignment. There is large anterior osteophyte formation from C4 to T1. There is no evidence of a fracture. Facet joints are intact. IMPRESSION: Cerebral atrophy. No acute intracranial abnormality. Scalp hematoma. Spondylotic changes in the cervical spine. No fracture.
--- NOTE | 2020-09-02 14:20 | XR ---
EXAMINATION TYPE: XR hand complete bilateral DATE OF EXAM: 09/02/2020 COMPARISON: NONE HISTORY: Pain TECHNIQUE: 3 views each hand FINDINGS: There is some narrowing and spurring at the first carpometacarpal joints. There is nondisplaced oblique fracture of the proximal shaft of the left hand fourth metacarpal. Ther e is bilateral narrowing of the IP joint spaces. There is probably hairline oblique fracture of the p roximal shaft of the right hand fifth metacarpal. The carpal bones appear intact. Radiocarpal joints are intact. IMPRESSION: Bilateral metacarpal fractures as above. Mild degenerative hypertrophic changes.
--- NOTE | 2020-09-02 14:23 | CT ---
EXAMINATION TYPE: CT facial bones wo con DATE OF EXAM: 09/02/2020 COMPARISON: None HISTORY: Fall CT DLP: Included in 1261.1 of Brain and C-spine mGycm Automated exposure control for dose reduction was used. Images obtained from the bottom of the mandible to the top of the frontal sinuses without contrast. The mandibular ring is intact. Temporomandibular joints are intact. Zygomatic arches appear normal. T he maxilla is intact. There is small mucus retention cyst anterior right maxillary sinus. There is no evidence of orbital blowout fracture. Orbital margins are intact. There is no retro-orbital mass. The nasal bone appears intact. There is mild frontal scalp soft tissue swelling. There is normal aeration of the mastoid sinuses. Temporal bones are intact. IMPRESSION: No fracture seen. Frontal scalp mild soft tissue swelling.
[2020-09-02] MEDS ORDERED: ACET/COD 300 MG/30 MG STARTER PACK 6 TAB BTL PO STA (14:31)
--- NOTE | 2020-09-02 15:04 | XR ---
EXAMINATION TYPE: XR chest 2V DATE OF EXAM: 09/02/2020 COMPARISON: NONE HISTORY: Chest pain TECHNIQUE: FINDINGS: Heart and mediastinum are within normal limits. Lungs are clear of infiltrate. There are no hilar masses. There is no pleural effusion. Bony thorax is intact. IMPRESSION: No active cardiopulmonary disease.
== END 2020-09-02 15:23 ==
LOC: EC 13:18
DX: S61.412A Laceration without foreign body of left hand, initial encounter (principal); S61.411A Laceration without foreign body of right hand, initial encounter; S70.01XA Contusion of right hip, initial encounter; S00.03XA Contusion of scalp, initial encounter; S80.02XA Contusion of left knee, initial encounter; S00.81XA Abrasion of other part of head, initial encounter; S09.90XA Unspecified injury of head, initial encounter; E78.5 Hyperlipidemia, unspecified; I25.10 Atherosclerotic heart disease of native coronary artery without angina pectoris; I25.2 Old myocardial infarction; K21.9 Gastro-esophageal reflux disease without esophagitis; M19.90 Unspecified osteoarthritis, unspecified site; Z79.82 Long term (current) use of aspirin; W01.0XXA Fall on same level from slipping, tripping and stumbling without subsequent striking against object, initial encounter; Y92.89 Other specified places as the place of occurrence of the external cause; Y93.01 Activity, walking, marching and hiking; Z23 Encounter for immunization
CPT/HCPCS: 70450; 70486; 71046; 72125; 72170; 90471; 90715; 99285

== ENCOUNTER 2021-12-04 13:27 | Observation (INO) | payer MEDICARE, OTHER ==
[2021-12-04 13:42] LABS: Glucose,Whole Blood 130 mg/dL (70-110)
[2021-12-04 13:49] LABS: Basophils % (A) 0 %; Eosinophils # (A) 0.1 k/uL (0-0.7); Eosinophils % (A) 1 %; HCT 41.3 % (39.0-53.0); HGB 14.5 gm/dL (13.0-17.5); Lymphocytes # (A) 0.4 k/uL (1.0-4.8); Lymphocytes % (A) 6 %; MCH 27.9 pg (25.0-35.0); MCHC 35.1 g/dL (31.0-37.0); MCV 79.6 fL (80.0-100.0); Mean Platelet Volume 8.8; Monocytes # (A) 0.3 k/uL (0-1.0); Monocytes % (A) 4 %; Neutrophils # (A) 5.8 k/uL (1.3-7.7); Neutrophils % (A) 88 %; Platelet Count 117 k/uL (150-450); RBC 5.19 m/uL (4.30-5.90); RDW 13.7 % (11.5-15.5); WBC 6.6 k/uL (3.8-10.6)
[2021-12-04 13:58] LABS: ALT 18 U/L (4-49); AST 18 U/L (17-59); African American GFR (CKD) >90 (>60 ml/min/1.73 sqM); Albumin 4.6 g/dL (3.5-5.0); Alkaline Phosphatase 80 U/L (38-126); Anion Gap 14 mmol/L; Blood Urea Nitrogen 18 mg/dL (9-20); Calcium 8.9 mg/dL (8.4-10.2); Carbon Dioxide 25 mmol/L (22-30); Chloride 95 mmol/L (98-107); Glucose 133 mg/dL (74-99); Non-African American GFR(CKD) 78 (>60 ml/min/1.73 sqM); Potassium 4.2 mmol/L (3.5-5.1); Prothrombin Time 11.2 sec (9.0-12.0); Sodium 134 mmol/L (137-145); Total Protein 6.5 g/dL (6.3-8.2)
--- NOTE | 2021-12-04 14:16 | CT ---
EXAMINATION TYPE: CT brain wo con DATE OF EXAM: 12/04/2021 HISTORY: Altered Mental Status CT DLP: 1261.4 mGycm. Automated Exposure Control for Dose Reduction was Utilized. TECHNIQUE: CT scan of the head is performed without contrast. COMPARISON: CT brain September 02, 2020. FINDINGS: There is no acute intracranial hemorrhage or midline shift identified. There is mild to m oderate diffuse ventricular and sulcal prominence consistent with diffuse age-related cerebral atroph y. Dean-white matter differentiation is maintained. The calvarium is intact. 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 Tiny mucous retention cysts and/or polyps in the bilateral maxillary sinuses are noted. Globes ar e intact bilaterally. IMPRESSION: No acute intracranial hemorrhage or midline shift.
--- NOTE | 2021-12-04 14:27 | XR ---
EXAMINATION TYPE: XR chest 1V portable DATE OF EXAM: 12/04/2021 COMPARISON: Chest x-ray September 02, 2020 HISTORY: Altered mental status and weakness. TECHNIQUE: Single AP portable frontal upright view of the chest is obtained. FINDINGS: There is some chronic parenchymal changes in the lung bases. Present. The cardiac silhoue tte size is mildly enlarged. The osseous structures are demineralized. Underlying scoliosis is pres ent. IMPRESSION: Chronic changes and mild cardiomegaly without acute pulmonary process.
[2021-12-04] MEDS ORDERED: MAG HYDROX/AL HYDROX/SIMETH 30 ML CUP PO PRN (14:55)
[2021-12-04] MEDS ORDERED: ACETAMINOPHEN TAB 325 MG TAB PO PRN (14:55)
[2021-12-04] MEDS ORDERED: NALOXONE 0.4 MG/ML 1 ML VIAL IV PRN (14:55)
--- NOTE | 2021-12-04 15:05 | ED ---
General Adult HPI - General Chief complaint: Neuro Symptoms/Deficit Stated complaint: AMS Time Seen by Provider: 12/04/21 13:28 Source: EMS Mode of arrival: EMS Limitations: altered mental status - History of Present Illness Initial comments: This patient is an 86-year-old man brought to have evaluation for altered mental status. Patient reportedly confused and disoriented. The symptoms going on since this morning. On arrival, the patient is able answer simple direct questions. He states that he is not having any pain. No dyspnea. The patient had been on a number of medications, including Keppra and these were reportedly stopped recently to see if they can get to the bottom of his situation. Onset/Timin -: days(s) Severity scale (1-10): 0 Improves with: none Worsens with: none Associated Symptoms: denies other symptoms Treatments Prior to Arrival: none - Related Data Home Medications Medication Instructions Recorded Confirmed Simvastatin [Zocor] 20 mg PO 1200 01/12/14 01/25/20 Isosorbide Dinitrate 10 mg PO BID 01/14/14 01/25/20 Metoprolol Succinate (ER) [Toprol 25 mg PO HS 05/16/17 01/25/20 XL] Tamsulosin [Flomax] 0.4 mg PO DAILY 05/16/17 01/25/20 Multivitamins, Thera [Multivitamin 1 tab PO DAILY 01/22/19 01/25/20 (formulary)] Omeprazole 20 mg PO 1200 01/22/19 01/25/20 Aspirin [Adult Low Dose Aspirin EC] 81 mg PO DAILY 01/21/20 01/25/20 Previous Rx's Medication Instructions Recorded Nitroglycerin Sl Tabs [Nitrostat] 0.4 mg SUBLINGUAL Q5M PRN #25 tab 01/15/14 Clopidogrel Bisulfate [Plavix] 75 mg PO DAILY #90 tab 01/26/20 Allergies Allergy/AdvReac Type Severity Reaction Status Date / Time No Known Allergies Allergy Verified 09/02/20 13:21 Review of Systems ROS Statement: Those systems with pertinent positive or pertinent negative responses have been documented in the HPI. ROS Other: All systems not noted in ROS Statement are negative. Limitations: ROS unobtainable due to patients medical condition Past Medical History Past Medical History: Coronary Artery Disease (CAD), Cancer, Chest Pain / Angina, GERD/Reflux, Hyperlipidemia, Memory Impairment, Myocardial Infarction (ME), Osteoarthritis (OA) Additional Past Medical History / Comment(s): hx Prostate Cancer, PT rt shoulder r/t injury. 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 LEFT HAND SX. "whole in esophageal repair. 4 stents put in heart." egd Past Anesthesia/Blood Transfusion Reactions: No Reported Reaction Date of Last Stent Placement:: 01/14/14 Past Psychological History: No Psychological Hx Reported Smoking Status: Former smoker Past Alcohol Use History: Unable to Obtain Past Drug Use History: Unable to Obtain - Past Family History Mother Family Medical History: Cancer Additional Family Medical History / Comment(s): LEUKEMIA Father Family Medical History: Cancer Additional Family Medical History / Comment(s): LUNG General Exam General appearance: alert, in no apparent distress Head exam: Present: atraumatic, normocephalic Eye exam: Present: normal appearance. Absent: scleral icterus, conjunctival injection Neck exam: Present: normal inspection, full ROM. Absent: tenderness, meningismus Respiratory exam: Present: normal lung sounds bilaterally. Absent: respiratory distress, wheezes, rales, rhonchi, stridor Cardiovascular Exam: Present: regular rate, normal rhythm, normal heart sounds. Absent: systolic murmur, diastolic murmur, rubs, gallop GI/Abdominal exam: Present: soft. Absent: distended, tenderness, guarding, rebound, rigid, mass Extremities exam: Present: normal inspection, normal capillary refill. Absent: pedal edema, calf tenderness Back exam: Present: normal inspection. Absent: CVA tenderness (R), CVA tenderness (L) Neurological exam: Present: alert, CN II-XII intact. Absent: oriented X3, motor sensory deficit Skin exam: Present: warm, dry, intact, normal color. Absent: rash Course Vital Signs 12/04/21 12/04/21 12/04/21 13:28 13:43 14:12 Temperature 97.9 F 98.4 F 97.9 F Pulse Rate 82 80 77 Respiratory 16 16 16 Rate Blood Pressure 165/93 151/84 161/97 O2 Sat by Pulse 98 95 96 Oximetry EKG Findings - EKG Results: EKG: interpreted by MAID, sinus rhythm (Rate 82 bpm), normal QRS, normal ST/T Medical Decision Making - Lab Data Result diagrams: 12/04/21 13:40 12/04/21 13:40 Lab Results 12/04/21 12/04/21 12/04/21 Range/Units 13:40 13:40 13:40 WBC 6.6 (3.8-10.6) k/uL RBC 5.19 (4.30-5.90) m/uL Hgb 14.5 (13.0-17.5) gm/dL Hct 41.3 (39.0-53.0) % MCV 79.6 L (80.0-100.0) fL MCH 27.9 (25.0-35.0) pg MCHC 35.1 (31.0-37.0) g/dL RDW 13.7 (11.5-15.5) % Plt Count 117 L (150-450) k/uL MPV 8.8 Neutrophils % 88 % Lymphocytes % 6 % Monocytes % 4 % Eosinophils % 1 % Basophils % 0 % Neutrophils # 5.8 (1.3-7.7) k/uL Lymphocytes # 0.4 L (1.0-4.8) k/uL Monocytes # 0.3 (0-1.0) k/uL Eosinophils # 0.1 (0-0.7) k/uL Basophils # 0.0 (0-0.2) k/uL PT 11.2 (9.0-12.0) sec INR 1.0 (<1.2) APTT 26.0 (22.0-30.0) sec Sodium 134 L (137-145) mmol/L Potassium 4.2 (3.5-5.1) mmol/L Chloride 95 L (98-107) mmol/L Carbon Dioxide 25 (22-30) mmol/L Anion Gap 14 mmol/L BUN 18 (9-20) mg/dL Creatinine 0.89 (0.66-1.25) mg/dL Est GFR (CKD-EPI)AfAm >90 (>60 ml/min/1.73 sqM) Est GFR (CKD-EPI)NonAf 78 (>60 ml/min/1.73 sqM) Glucose 133 H (74-99) mg/dL POC Glucose (mg/dL) (70-110) mg/dL POC Glu Teacher Hearing Impaired ID Calcium 8.9 (8.4-10.2) mg/dL Total Bilirubin 1.0 (0.2-1.3) mg/dL AST 18 (17-59) U/L ALT 18 (4-49) U/L Alkaline Phosphatase 80 (38-126) U/L Troponin I (0.000-0.034) ng/mL Total Protein 6.5 (6.3-8.2) g/dL Albumin 4.6 (3.5-5.0) g/dL 12/04/21 12/04/21 Range/Units 13:40 13:41 WBC (3.8-10.6) k/uL RBC (4.30-5.90) m/uL Hgb (13.0-17.5) gm/dL Hct (39.0-53.0) % MCV (80.0-100.0) fL MCH (25.0-35.0) pg MCHC (31.0-37.0) g/dL RDW (11.5-15.5) % Plt Count (150-450) k/uL MPV Neutrophils % % Lymphocytes % % Monocytes % % Eosinophils % % Basophils % % Neutrophils # (1.3-7.7) k/uL Lymphocytes # (1.0-4.8) k/uL Monocytes # (0-1.0) k/uL Eosinophils # (0-0.7) k/uL Basophils # (0-0.2) k/uL PT (9.0-12.0) sec INR (<1.2) APTT (22.0-30.0) sec Sodium (137-145) mmol/L Potassium (3.5-5.1) mmol/L Chloride (98-107) mmol/L Carbon Dioxide (22-30) mmol/L Anion Gap mmol/L BUN (9-20) mg/dL Creatinine (0.66-1.25) mg/dL Est GFR (CKD-EPI)AfAm (>60 ml/min/1.73 sqM) Est GFR (CKD-EPI)NonAf (>60 ml/min/1.73 sqM) Glucose (74-99) mg/dL POC Glucose (mg/dL) 130 H (70-110) mg/dL POC Glu Teacher Hearing Impaired ID Rambo Gilbert Calcium (8.4-10.2) mg/dL Total Bilirubin (0.2-1.3) mg/dL AST (17-59) U/L ALT (4-49) U/L Alkaline Phosphatase (38-126) U/L Troponin I <0.012 (0.000-0.034) ng/mL Total Protein (6.3-8.2) g/dL Albumin (3.5-5.0) g/dL Disposition Clinical Impression: Altered mental status Disposition: ADMITTED IP TO THIS HOSP Condition: Fair Is patient prescribed a controlled substance at d/c from ED?: No Referrals: Talha Spencer MD [Primary Care Provider] - 1-2 days Forms: Who Do I Call?, Adult Foster Longterm List, Assisted Living Facilities, Personal Extension Clerk
[2021-12-04] MEDS: SODIUM CHLORIDE 0.9% 1,000 ML IV SCH (15:10)
[2021-12-04 15:42] LABS: ABG Base Excess 3.2 mmol/L; ABG HCO3 28 mmol/L (21-25); ABG Oxygen Saturation 97.8 % (94-97); ABG PCO2 41 mmHg (35-45); ABG PH 7.43 (7.35-7.45); ABG PO2 123 mmHg (83-108); ABG TCO2 29 mmol/L (19-24)
[2021-12-04] MEDS: METOPROLOL TARTRATE 25 MG TAB PO SCH (20:10)
[2021-12-04] MEDS: HEPARIN SODIUM,PORCINE/PF 5,000 UNIT/0.5 ML SYRINGE SQ SCH (20:10)
[2021-12-04] MEDS: FAMOTIDINE 20 MG TAB PO SCH (20:10)
[2021-12-05 01:14] LABS: Appearance,Urine Clear (Clear); Bilirubin,Urine Negative (Negative); Blood,Urine Negative (Negative); Color,Urine Yellow; Glucose,Urine (UA) Negative (Negative); Ketones,Urine Negative (Negative); Leukocyte Esterase,Urine Negative (Negative); Nitrite,Urine Negative (Negative); PH, Urine 6.5 (5.0-8.0); Protein,Urine Negative (Negative); Specific Gravity,Urine 1.019 (1.001-1.035); Urobilinogen,Urine <2.0 mg/dL (<2.0)
--- NOTE | 2021-12-05 04:15 | HP ---
HISTORY AND PHYSICAL CHIEF COMPLAINT: Change in mental status. HISTORY OF PRESENT ILLNESS: This is an 86-year-old gentleman with a past medical history of multiple problems including GERD, hyperlipidemia, history of memory impairment, was found to have some change in mental status. The patient is confused. The patient was taken to [facility] and was admitted for further evaluation and treatment. The basic labs are within normal limits and ABG showed pCO2 of 123, sodium is [address] of the brain, which I reviewed personally showed some atrophy and ventriculomegaly. PAST MEDICAL HISTORY: Reviewed, include CAD, hyperlipidemia. HOME MEDICATIONS: Again reviewed include Lopressor, dose and rest of medication noted. ALLERGIES: None known. FAMILY HISTORY: Could not be obtained. The patient is confused. SOCIAL HISTORY: Could not be obtained. The patient is confused. REVIEW OF SYSTEMS: Could not be obtained. The patient is confused. PHYSICAL EXAMINATION: VITAL SIGNS: Pulse is 86, blood pressure 128/87, respirations 16. HEENT: Conjunctivae normal. NECK: No JVD. CARDIOVASCULAR: S1 and S2. RESPIRATIONS: Breath sounds diminished at the bases. A few scattered rhonchi. ABDOMEN: Soft. NERVOUS SYSTEM: Moves all 4 limbs. Mild diffuse weakness. SKIN: No ulcer, rash, bleeding. JOINTS: No active deforming arthropathy. LABORATORY DATA: CBC noted, otherwise CO2 is 41 and PO2 is 123 in the ABGs. Sodium 134. ASSESSMENT: 1. Change in mental status. Rule out acute stroke. 2. Dementia. 3. Hyperlipidemia. 4. Gait dysfunction. 5. Gastroesophageal reflux disease. 6. Multiple medical issues. RECOMMENDATIONS AND DISCUSSION: This is an 86-year-old gentleman, who presented with multiple complex medical issues. We will monitor the patient closely. We will do the stroke workup. Neurology consultation. Resume the home medications. Also recommend social work evaluation for possible ECF rehab. Guarded prognosis. Further recommendations to follow. See orders for further details. MMODL / IJN: [id number] /
[2021-12-05] MEDS: SODIUM CHLORIDE 0.9% 1,000 ML IV SCH (04:50)
[2021-12-05] MEDS ORDERED: MEDIUM CHAIN TRIGLYCERIDES PO SCH (09:00)
[2021-12-05 09:44] LABS: African American GFR (CKD) 90.4 (60.0-200.0); Anion Gap 10.7 mmol/L (10.00-18.00); BUN/Creat Ratio 19.35 Ratio (12.00-20.00); Blood Urea Nitrogen 17.2 mg/dL (9.0-27.0); Calcium 8.5 mg/dL (8.7-10.3); Carbon Dioxide 24.9 mmol/L (20.0-27.5); Potassium 3.7 mmol/L (3.5-5.5)
[2021-12-05] MEDS: MULTIVITAMINS, THERA 1 EACH TAB PO SCH (09:54)
[2021-12-05] MEDS: FAMOTIDINE 20 MG TAB PO SCH ×2 (09:54→20:37)
[2021-12-05] MEDS: PANTOPRAZOLE 40 MG TABLET PO SCH (09:54)
[2021-12-05] MEDS: FLUTICASONE 50MCG/SPRAY NASAL 16GM EA NOSTRIL SCH (09:55)
[2021-12-05] MEDS: HEPARIN SODIUM,PORCINE/PF 5,000 UNIT/0.5 ML SYRINGE SQ SCH ×2 (09:55→20:37)
[2021-12-05 10:00] LABS: Basophils # (A) 0.01 X 10*3/uL (0.00-0.10); Basophils % (A) 0.2 %; Eosinophils # (A) 0.02 X 10*3/uL (0.04-0.35); Eosinophils % (A) 0.5 %; HCT 38.1 % (39.6-50.0); Immature Grans, Automated 0.5 %; Lymphocytes # (A) 0.84 X 10*3/uL (0.90-5.00); Lymphocytes % (A) 19.3 %; MCH 27.6 pg (27.0-32.0); MCHC 34.1 g/dL (32.0-37.0); MCV 80.9 fL (80.0-97.0); Mean Platelet Volume 11.9 fL (9.5-12.2); Monocytes # (A) 0.48 X 10*3/uL (0.20-1.00); NRBC Per 100 WBC 0 /100 WBCS (0.0-0.0); Neutrophils # (A) 2.99 X 10*3/uL (1.80-7.70); Neutrophils % (A) 68.5 %; Platelet Count 104 X 10*3/uL (140-440); RBC 4.71 X 10*6/uL (4.40-5.60); RDW 13.2 % (11.5-14.5); WBC 4.36 X 10*3/uL (4.50-10.00)
[2021-12-05] MEDS ORDERED: ASPIRIN 81 MG PO SCH (12:00)
--- NOTE | 2021-12-05 12:48 | US ---
EXAMINATION TYPE: US carotid duplex BILAT DATE OF EXAM: 12/05/2021 COMPARISON: NONE CLINICAL HISTORY: Stenosis, episode of UR, ?TIA. TECHNIQUE: Carotid duplex ultrasound examination. Indirect Doppler criteria was utilized. FINDINGS: EXAM MEASUREMENTS: RIGHT: Peak Systolic Velocity (PSV) cm/sec ----- Right CCA: 87.7 ----- Right ICA: 73.5 ----- Right ECA: 210.0 ICA/CCA ratio: 0.84 RIGHT: End Diastole cm/sec ----- Right CCA: 12.9 ----- Right ICA: 19.0 ----- Right ECA: 17.9 LEFT: Peak Systolic Velocity (PSV) cm/sec ----- Left CCA: 47.1 ----- Left ICA: 70.3 ----- Left ECA: 90.9 ICA/CCA ratio: 1.48 LEFT: End Diastole cm/sec ----- Left CCA: 10.6 ----- Left ICA: 16.5 ----- Left ECA: 19.3 VERTEBRALS (direction of flow): Right Vertebral: Antegrade Left Vertebral: Antegrade Rhythm: Normal FRONT END DRIVER NOTES: Mild atherosclerotic changes, slight velocity increases seen in bilateral ECA's. ICA's show no signif icant velocity increases. Stent visualized on left. IMPRESSION: Atherosclerotic changes with no significant hemodynamic stenosis. Criteria for Assigning % of Stenosis / Diameter reduction (Estimation based on the indirect measurements of the internal carotid artery velocities (ICA PSV). 1. Normal (no stenosis)=ICA PSV < 125 cm/s: ratio < 2.0: ICA EDV<40 cm/s. 2. Less than 50% stenosis=ICA PSV < 125 cm/s: ratio < 2.0: ICA EDV<40 cm/s. 3. 50 to 69% stenosis=ICA PSV of 125 to 230 cm/s: ration 2.0 ? 4.0: ICA EDV 40-100 cm/s. 4. Greater than 70% stenosis to near occlusion= ICA PSV > 230 cm/s: ratio > 4.0: ICA EDV > 100 cm/s. 5. Near occlusion= ICA PSV velocities may be low or undetectable: variable ratio and ICA EDV. 6. Total occlusion=unable to detect flow.
--- NOTE | 2021-12-05 13:32 | P.CNNES ---
History of Present Illness Consult date: 12/05/21 Requesting physician: Feliz Membreno Reason for Consult: Altered mental status History of Present Illness: Patient is a 86-year-old male came to the hospital by ambulance yesterday at 1:27 PM for evaluation of episode of altered mental status. Patient's sister was also present, who also provided the history. Yesterday patient's sister heard him moaning. She went in and found him sitting on the computer with a vacant look, and he had no response. He couldn't give any answers. He does not remember anything what happened. Patient states that he woke up this morning today. There was no facial droop, slurred speech, focal weakness noticed. Patient's sister states that he had a similar spell about 6 weeks ago when he was sitting on the computer, when he suddenly bent over, squish his eyes, and then also had a staring spell, which lasted for an hour. She thought he was having a heart attack. Patient was taken to [facility] where he underwent computed tomography scan of the head which revealed a previous CVA. Patient's sister states that his Aricept was discontinued concerning for side effects from Aricept, and Keppra was started which he took for 30 days. He stopped Keppra about 2 weeks ago. No history of head trauma or concussions. As per EMS flow sheet, it was mentioned that patient woke up from nap with acute altered mental status. Patient had previous history of stroke and is being assess for possible neurological changes related to suspected dementia. Last known well was about 3 or 4 hours prior to their arrival. Patient's blood pressure at the scene was 153/103, pulse 89, respiration 20, saturation 97%. Blood sugar 138. CT head showed no acute intracranial hemorrhage or midline shift. On my review, there is evidence of old lacune involving the left basal ganglia. Visualized paranasal sinuses are clear. No acute process. Chest x-ray revealed chronic c hanges and mild cardiomegaly without acute pulmonary process. EKG shows sinus rhythm. Borderline left axis deviation. Blood test shows normal CBC, PT/PTT, sodium 134 potassium 4.2, normal renal functions. Hepatic panel is normal, troponin negative. Ammonia is <9. UA negative. ABG with pH 7.43, pO2 123, pCO2 41. Patient's sister mentions that patient was seen by Dr. Jo, patient had und ergone EEG on Friday, 2 days ago, the results of which are not available. He is also scheduled for MRI of the brain, MRA as well as lumbar puncture on 12/11/2021. Patient has stopped aspirin since Friday (2 days ago, with last dose on Friday) for upcoming lumbar puncture. Patient's neck CTA from 12/30/2019 showed severe 90% stenosis left ICA origin. Moderate irregular narrowing of the V4 intracranial segment right vertebral artery possibly with the more severe short segment stenosis of its midportion. Patient had undergone left ICA stenting about 6 months ago. Patient denies diabetes. He does have hypertension. Denies any tobacco or alcohol use. No marijuana use. Patient's home medications include simvastatin 20 mg, omeprazole 20 mg, aspirin 81 mg, fish oil, metoprolol, losartan, multivitamin. Review of Systems Constitutional: Denies chills, Denies fever Eyes: denies blurred vision, denies pain Ears, nose, mouth and throat: Denies headache, Denies sore throat Cardiovascular: Denies chest pain, Denies shortness of breath Respiratory: Denies cough Gastrointestinal: Denies abdominal pain, Denies diarrhea, Denies nausea, Denies vomiting Musculoskeletal: Denies myalgias Integumentary: Denies pruritus, Denies rash Neurological: Reports as per HPI Psychiatric: Denies anxiety, Denies depression Endocrine: Denies fatigue, Denies weight change Hematologic/Lymphatic: Denies easy bruising Allergic/Immunologic: Denies persistent infections Past Medical History Past Medical History: Coronary Artery Disease (CAD), Cancer, Chest Pain / Angina, GERD/Reflux, Hyperlipidemia, Memory Impairment, Myocardial Infarction (NV), Osteoarthritis (OA) Additional Past Medical History / Comment(s): hx Prostate Cancer, PT rt shoulder r/t injury. 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 LEFT HAND SX. "whole in esophageal repair. 4 stents put in heart." egd Past Anesthesia/Blood Transfusion Reactions: No Reported Reaction Date of Last Stent Placement:: 01/14/14 Past Psychological History: No Psychological Hx Reported Smoking Status: Former smoker Past Alcohol Use History: Unable to Obtain Additional Past Alcohol Use History / Comment(s): Pt family states he quit smoking roughly in 2001 Past Drug Use History: None Reported - Past Family History Mother Family Medical History: Cancer Additional Family Medical History / Comment(s): LEUKEMIA Father Family Medical History: Cancer Additional Family Medical History / Comment(s): LUNG Medications and Allergies Home Medications Medication Instructions Recorded Confirmed Type Simvastatin [Zocor] 20 mg PO DAILY@1200 01/12/14 12/04/21 History Omeprazole 20 mg PO BID 01/22/19 12/04/21 History Aspirin [Adult Low Dose Aspirin EC] 81 mg PO DAILY@1200 01/21/20 12/04/21 History Fish Oil/Dha/Epa [Fish Oil 1,200 1 cap PO DAILY 12/04/21 12/04/21 History mg Fish Oil] Fluticasone Nasal [place] [Flonase 2 spray EA NOSTRIL DAILY 12/04/21 12/04/21 History Nasal [place]] Losartan [Cozaar] 25 mg PO DAILY@1200 12/04/21 12/04/21 History Metoprolol Tartrate [Lopressor] 25 mg PO HS 12/04/21 12/04/21 History Multivit-Min/FA/Lycopen/Lutein 1 tab PO DAILY 12/04/21 12/04/21 History [Centrum Silver Men Tablet] Organic Mct Oil 1 tsp PO DAILY 12/04/21 12/04/21 History Allergies Allergy/AdvReac Type Severity Reaction Status Date / Time No Known Allergies Allergy Verified 12/04/21 15:47 Physical Examination - Vital Signs Vital Signs: Vital Signs Temp Pulse Pulse Resp BP BP Pulse Ox 12/05/21 05:00 98.5 F 82 18 165/86 97 12/04/21 17:16 98.8 F 72 16 172/90 100 12/04/21 16:11 98.4 F 74 17 157/91 99 12/04/21 15:39 97.9 F 80 16 150/87 99 12/04/21 15:26 150/87 12/04/21 15:19 144/89 12/04/21 14:12 97.9 F 77 16 161/97 96 12/04/21 13:43 98.4 F 80 16 151/84 95 12/04/21 13:28 97.9 F 82 16 165/93 98 Intake and Output 12/04/21 12/05/21 12/05/21 22:59 06:59 14:59 Intake Total 1000 296 Balance 1000 296 Intake: Intake, IV Titration 1000 Amount Sodium Chloride 0.9% 1, 1000 000 ml @ 75 mls/hr IV . [id number] Rx#:[id number] Oral 296 Other: Voiding Method Toilet Toilet # Voids 1 2 # Bowel Movements 1 Weight 95 kg Patient is an elderly male, in no acute distress. Patient is alert awake oriented to time place and person. He knows it is 12/05/2021 and that he is in [facility], his date of and name of the current president. Speech and language functions are normal. Patient can name and repeat very well. No aphasia or dysarthria. Attention, concentration and fund of knowledge is adequate. On cranial nerve examination, pupils are equal, round and reacting to light, visual luther are full on confrontation, with no neglect on double simultaneous depression. Extraocular muscles are intact with no nystagmus. Face is symmetric, tongue protrudes to the midline. Palatal elevation and sensation normal, hearing and shoulder shrug normal, facial sensation normal. On muscle strength testing, there is no pronator drift and the strength is normal in arms and legs distally and proximally. Deep tendon reflexes are symmetric biceps 1, brachioradialis 1, knees 2+, ankles 1 and plantars downgoing bilaterally. Sensory to touch is equal with no neglect on double simultaneous stimulation. Cerebellar function showed some tremulousness but no ataxia for [id number] testing. No dysdiadochokinesia. No ataxia for egag-di-[id number] testing on either side. Tone and bulk of muscles normal. Gait deferred.. On general examination, there is no carotid bruit or murmur, S1-S2 audible. Chest is clear on consultation. Abdomen is soft nontender. No organomegaly, bowel sounds present. Peripheral pulses are present. No edema. Results - Laboratory Findings CBC and BMP: 12/05/21 05:06 12/05/21 05:06 Abnormal Lab Findings: Abnormal Labs 12/04/21 12/04/21 12/04/21 13:40 13:40 13:41 WBC Hct MCV 79.6 L Plt Count 117 L Plt Count Comment Lymphocytes # 0.4 L Eosinophils # ABG pO2 ABG HCO3 ABG Total CO2 ABG O2 Saturation Sodium 134 L Chloride 95 L Glucose 133 H POC Glucose (mg/dL) 130 H Calcium 12/04/21 12/05/21 12/05/21 15:38 05:06 05:06 WBC 4.36 L Hct 38.1 L MCV Plt Count 104 L Plt Count Comment DECREASED A Lymphocytes # 0.84 L Eosinophils # 0.02 L ABG pO2 123 H ABG HCO3 28 H ABG Total CO2 29 H ABG O2 Saturation 97.8 H Sodium Chloride Glucose POC Glucose (mg/dL) Calcium 8.5 L Assessment and Plan Assessment: * Transient episode of unresponsiveness/staring spell. Rule out partial seizure, rule out TIA. Patient had a similar spell 6 weeks ago. * Hypertension * History of left ICA stenosis, status post left ICA stenting, 6 months ago * Coronary artery disease * Hyperlipidemia Plan: * MRI of brain, evaluate for CVA, rule out mass. * EEG * Carotid Doppler * Patient was on aspirin, which has been held since Friday (2 days ago) for upcoming lumbar puncture on 12/11/2021 by his neurologist. We will resume aspirin. * B12, folate, TSH, hemoglobin A1c. Ammonia is normal <9. * Telemetric monitoring. * DVT prophylaxis:, Patient on heparin 5000 units subcu every 12 hours. * Neurology will follow. Thank you for the consult.
[2021-12-05] MEDS: LOSARTAN 25 MG TAB PO SCH (13:57)
[2021-12-05] MEDS: ATORVASTATIN 10 MG TAB PO SCH (13:57)
[2021-12-05] MEDS: amLODIPine 10 MG TAB PO SCH (16:59)
[2021-12-05] MEDS: METOPROLOL TARTRATE 25 MG TAB PO SCH (20:37)
--- NOTE | 2021-12-06 03:22 | EEG ---
ELECTROENCEPHALOGRAM REPORT PREAMBLE: This is an 86-year-old male with episodes of altered mental status. Rule out seizure disorder. EEG FINDINGS: This is a 21-channel digital EEG recorded with video component, utilizing 10/20 international system with referential and bipolar montages. Background consists of well-developed, moderately well regulated, mixed frequencies of 8 hertz alpha, mixed with some fast frequency beta activity. Background seems to be reactive to eye opening and closing. Photic driving response was seen with some flash frequencies. Frequent myogenic activity was seen in temporal region. Drowsiness was seen with appearance of symmetric theta frequency rhythm. Deeper stages of sleep were not seen. No focal or generalized epileptiform activity was seen. IMPRESSION: This is a normal awake and drowsy EEG. No focal, lateralized or epileptiform activity was seen. MMODL / IJN: [id number] /
--- NOTE | 2021-12-06 06:45 | PN ---
PROGRESS NOTE SUBJECTIVE: This is an 86-year-old gentleman, who was admitted with dementia and change in mental status, is being closely monitored. No chest pain. No palpitations. No fever. The patient remains confused. PHYSICAL EXAMINATION: VITAL SIGNS: Pulse is 70, blood pressure 185/95, respirations 18. CHEST: Clear to auscultation. ABDOMEN: Soft, nontender. NERVOUS SYSTEM: No focal deficits. LABS: Reviewed. ASSESSMENT: 1. Change in mental status. Rule out acute stroke. 2. Dementia. 3. Hyperlipidemia. 4. Gait dysfunction. 5. Gastroesophageal reflux disease. 6. Multiple medical issues. RECOMMENDATIONS AND DISCUSSION: Recommend to continue current medications, symptomatic treatment. Otherwise, recommend to add Norvasc to the current regimen. Otherwise, closely follow. PT, OT evaluation, possible ECF rehab. See orders for further details. MMODL / IJN: [id number] /
[2021-12-06] MEDS: HEPARIN SODIUM,PORCINE/PF 5,000 UNIT/0.5 ML SYRINGE SQ SCH (08:17)
[2021-12-06] MEDS: MULTIVITAMINS, THERA 1 EACH TAB PO SCH (08:18)
[2021-12-06] MEDS: FAMOTIDINE 20 MG TAB PO SCH (08:18)
[2021-12-06] MEDS: amLODIPine 10 MG TAB PO SCH (08:18)
[2021-12-06] MEDS: PANTOPRAZOLE 40 MG TABLET PO SCH (08:18)
[2021-12-06 09:04] LABS: African American GFR (CKD) 79.2 (60.0-200.0); Anion Gap 10.6 mmol/L (10.00-18.00); BUN/Creat Ratio 16.5 Ratio (12.00-20.00); Blood Urea Nitrogen 16.5 mg/dL (9.0-27.0); Calcium 9.1 mg/dL (8.7-10.3); Carbon Dioxide 28.4 mmol/L (20.0-27.5); Non-African American GFR(CKD) 68.3 (60.0-200.0); Potassium 4.6 mmol/L (3.5-5.5)
[2021-12-06] MEDS ORDERED: ASPIRIN 81 MG PO STA (09:04)
[2021-12-06 09:25] LABS: Basophils # (A) 0.02 X 10*3/uL (0.00-0.10); Basophils % (A) 0.5 %; Eosinophils # (A) 0.08 X 10*3/uL (0.04-0.35); Eosinophils % (A) 2.1 %; HCT 40.2 % (39.6-50.0); HGB 13.7 g/dL (13.0-17.0); Immature Grans, Automated 0.5 %; Lymphocytes # (A) 0.95 X 10*3/uL (0.90-5.00); Lymphocytes % (A) 24.7 %; MCH 27.8 pg (27.0-32.0); MCHC 34.1 g/dL (32.0-37.0); MCV 81.7 fL (80.0-97.0); Mean Platelet Volume 11.6 fL (9.5-12.2); Monocytes # (A) 0.53 X 10*3/uL (0.20-1.00); Monocytes % (A) 13.8 %; NRBC Per 100 WBC 0 /100 WBCS (0.0-0.0); Neutrophils # (A) 2.25 X 10*3/uL (1.80-7.70); Neutrophils % (A) 58.4 %; Platelet Count 118 X 10*3/uL (140-440); RBC 4.92 X 10*6/uL (4.40-5.60); RDW 13.2 % (11.5-14.5); WBC 3.85 X 10*3/uL (4.50-10.00)
[2021-12-06] MEDS: FLUTICASONE 50MCG/SPRAY NASAL 16GM EA NOSTRIL SCH (09:41)
[2021-12-06 11:55] VITALS: BP 150/86; PULSE 77; RESP 16; TEMP 98.1
[2021-12-06 12:24] LABS: LDL Cholesterol,Calculated 104.3 mg/dL (0.0-131.0)
[2021-12-06] MEDS: LOSARTAN 25 MG TAB PO SCH (13:04)
[2021-12-06] MEDS: ATORVASTATIN 10 MG TAB PO SCH (13:04)
--- NOTE | 2021-12-06 14:37 | MR ---
EXAMINATION TYPE: MR brain wo/w con DATE OF EXAM: 12/06/2021 COMPARISON: CT brain from 2 days earlier and older CT 2020 HISTORY: ams TECHNIQUE: Multiplanar, multisequence images of the brain and brainstem is performed without and with IV contras t, utilizing 9.5 mL intravenous Gadavist . FINDINGS: Diffusion weighted images demonstrate no evidence of a recent infarct or other diffusion ab normality. There is mild to moderate ventricular and sulcal prominence. Some scattered small foci of T2 hyperintensity are seen throughout the deep and periventricular white matter. Possible old lacuna r infarct versus prominent Virchow-Adams space posterior inferior left basal ganglia axial image 16 i s redemonstrated. Midline structures demonstrate normal morphology. The craniocervical junction remains within normal limits. Post contrast images demonstrate no abnormal enhancement. The dural venous sinuses appear pa tent. The visualized sinuses are clear and the globes are intact. IMPRESSION: No MRI evidence for recent infarct. There is [id number]-[id number] diffuse cerebral atrophy an d mild chronic small vessel ischemic change with probable old left-sided infarct all redemonstrated. No significant change from prior CTs.
[2021-12-06] MEDS ORDERED: CYANOCOBALAMIN 1,000 MCG/ML 1 ML VIAL IM ONE (16:00)
[2021-12-07] MEDS ORDERED: ASPIRIN 81 MG PO SCH (09:00)
--- NOTE | 2021-12-07 15:37 | P.DS ---
Providers Date of admission: 12/04/21 15:09 Expected date of discharge: 12/06/21 Attending physician: Ana Paula Kenyon Consults: 12/04/21 14:55 Consult Physician Routine Consulting Provider: Ava Ayala Consult Reason/Comments: altered mental status Do you want consulting provider notified?: Yes Primary care physician: Talha Spencer Hospital Course: Final diagnosis Change in mental status, ruled out acute stroke Dementia Hyperlipidemia gait dysfunction Gastroesophageal reflux disease History of coronary artery disease Prostate cancer Hyperlipidemia Osteoarthritis Discharge disposition Patient is being discharged in a stable condition with guarded prognosis to home. Patient will follow-up with Dr. Spencer in the outpatient setting upon discharge. Patient is to continue with Keppra per neurology recommendations and has been resumed on aspirin as scheduled. Patient follow-up with his neurologist in the outpatient setting on discharge. Total time taken is greater than 35 minutes. Hospital course This is a 86-year-old male who was recently admitted with altered mental status with history of dementia and was being closely monitored. Patient was evaluated by neurology and mentation improved. Per sister there were concerned for possible seizures as patient has been following that his neurologist outpatient and was on Keppra although has been off Keppra for the last 2 weeks. Aspirin was also being held as patient was tentatively scheduled for an LP in the outpatient setting. Patient also reports they recently received Covid booster day before this occurred. Patient has been evaluated by neurology and also underwent MRI of the brain which was negative for any acute process at this time. Recommend following up with neurology in the outpatient setting on discharge. Patient and family also agreeable with resuming aspirin and Keppra and prescriptions were provided and will follow-up with his neurologist this week. Patient reports to feeling well and extremely anxious to going home. Currently no reports of chest pain, shortness of breath, or palpitations. Patient is afebrile. No reports of nausea or vomiting and patient is tolerating diet. Patient will be discharged home today. Physical exam: Gen: This is a 86-year-old male awake, alert and oriented 3, well-developed, well-nourished HEENT: Head is atraumatic, normocephalic. Pupils equal, round. Sclerae is anicteric. NECK: Supple. No JVD. No lymphadenopathy. No thyromegaly. LUNGS: Diminished breath sounds bilaterally with no wheezing or rhonchi noted. No intercostal retractions. HEART: S1, S2 are muffled ABDOMEN: Soft. Bowel sounds are present. No masses. No tenderness. EXTREMITIES: No pedal edema. No calf tenderness. NEUROLOGICAL: Patient is awake, alert and oriented x3. Cranial nerves 2 through 12 are grossly intact. Please refer to medication reconciliation sheet for a list of medications. The impression and plan of care has been dictated by Ananya Hooper, Nurse Practitioner as directed. Dr. Kostas MD I have performed a history and examination and MDM of this patient, discussed the same with the dictator, and agree with the dictator's assessment and plan as written ,documented as a scribe. Based on total visit time, I have performed more than 50% of the visit. Patient Condition at Discharge: Fair Plan - Discharge Summary Discharge Rx Participant: No New Discharge Prescriptions: New Acetaminophen Tab [Tylenol] 650 mg PO Q6HR PRN tab PRN Reason: Mild Pain Or Fever > 100.5 amLODIPine [Norvasc] 10 mg PO DAILY #30 tab Aspirin 81 mg PO DAILY 30 Days #30 tab levETIRAcetam [Keppra] 500 mg PO Q12HR #60 tab Cyanocobalamin (Vitamin B-12) [Vitamin B-12] 1,000 mcg PO DAILY #30 tablet Continue Simvastatin [Zocor] 20 mg PO DAILY@1200 Omeprazole 20 mg PO BID Fish Oil/Dha/Epa [Fish Oil 1,200 mg Fish Oil] 1 cap PO DAILY Fluticasone Nasal [place] [Flonase Nasal [place]] 2 spray EA NOSTRIL DAILY Metoprolol Tartrate [Lopressor] 25 mg PO HS Losartan [Cozaar] 25 mg PO DAILY@1200 Organic Mct Oil 1 tsp PO DAILY Multivit-Min/FA/Lycopen/Lutein [Centrum Silver Men Tablet] 1 tab PO DAILY Discontinued Aspirin [Adult Low Dose Aspirin EC] 81 mg PO DAILY@1200 Discharge Medication List Simvastatin [Zocor] 20 mg PO DAILY@1200 01/12/14 [History] Omeprazole 20 mg PO BID 01/22/19 [History] Fish Oil/Dha/Epa [Fish Oil 1,200 mg Fish Oil] 1 cap PO DAILY 12/04/21 [History] Fluticasone Nasal [place] [Flonase Nasal [place]] 2 spray EA NOSTRIL DAILY 12/04/21 [History] Losartan [Cozaar] 25 mg PO DAILY@1200 12/04/21 [History] Metoprolol Tartrate [Lopressor] 25 mg PO HS 12/04/21 [History] Multivit-Min/FA/Lycopen/Lutein [Centrum Silver Men Tablet] 1 tab PO DAILY 12/04/21 [History] Organic Mct Oil 1 tsp PO DAILY 12/04/21 [History] Acetaminophen Tab [Tylenol] 650 mg PO Q6HR PRN tab 12/06/21 [Rx] Aspirin 81 mg PO DAILY 30 Days #30 tab 12/06/21 [Rx] Cyanocobalamin (Vitamin B-12) [Vitamin B-12] 1,000 mcg PO DAILY #30 tablet 12/06/21 [Rx] amLODIPine [Norvasc] 10 mg PO DAILY #30 tab 12/06/21 [Rx] levETIRAcetam [Keppra] 500 mg PO Q12HR #60 tab 12/06/21 [Rx] Follow up Appointment(s)/Referral(s): Talha Spencer MD [Primary Care Provider] - 12/10/21 10:30 am Patient Instructions/Handouts: Aspirin (By mouth), Levetiracetam (By mouth), Vitamin B-12 (By mouth), Altered Mental Status (GEN) Activity/Diet/Wound Care/Special Instructions: Activity Limited until follow-up Follow-up with neurologist at your scheduled appointment Follow-up primary care provider on discharge Continue with aspirin and Keppra and follow-up with neurologist this week Continue taking medications as prescribed Discharge/Stand Alone Forms: Who Do I Call?, Adult Foster Longterm List, Assisted Living Facilities, Personal Student Services Director Discharge Disposition: HOME SELF-CARE
== END 2021-12-06 16:31 | disposition home or self-care (01) ==
LOC: EC 13:27 → 5NMEDONC 15:09
PROVIDERS: ADMIT Hospitalist; ATTEND Hospitalist
DX: R41.82 Altered mental status, unspecified (principal); F03.90 Unspecified dementia, unspecified severity, without behavioral disturbance, psychotic disturbance, mood disturbance, and anxiety; R26.9 Unspecified abnormalities of gait and mobility; G31.89 Other specified degenerative diseases of nervous system; I25.10 Atherosclerotic heart disease of native coronary artery without angina pectoris; K21.9 Gastro-esophageal reflux disease without esophagitis; E78.5 Hyperlipidemia, unspecified; I25.2 Old myocardial infarction; I65.22 Occlusion and stenosis of left carotid artery; I11.9 Hypertensive heart disease without heart failure; Z85.46 Personal history of malignant neoplasm of prostate; Z79.899 Other long term (current) drug therapy; Z79.82 Long term (current) use of aspirin; Z79.02 Long term (current) use of antithrombotics/antiplatelets; Z98.42 Cataract extraction status, left eye; Z96.1 Presence of intraocular lens; Z87.891 Personal history of nicotine dependence; Z80.6 Family history of leukemia; Z80.1 Family history of malignant neoplasm of trachea, bronchus and lung; Z86.73 Personal history of transient ischemic attack (TIA), and cerebral infarction without residual deficits
CPT/HCPCS: 96360; 96361 ×2; 96372 ×3; 99285; 36415; 36600; 95816; 93005; 97162; 97166; 80061; 80053; 80048 ×2; 82607; 82140; 82746; 82805; 84484; 85025 ×3; 85610; 85730; 81003; 87040; 83036; 71045; 93880; 70450; 70553; G0378 ×3; J3420; J1644 ×3; A9585

== ENCOUNTER 2021-12-28 12:01 | Observation (INO) | payer MEDICARE, OTHER ==
[2021-12-28 12:48] LABS: Basophils % (A) 1 %; Eosinophils # (A) 0.1 k/uL (0-0.7); Eosinophils % (A) 2 %; HCT 44.6 % (39.0-53.0); HGB 15.8 gm/dL (13.0-17.5); Lymphocytes # (A) 1.2 k/uL (1.0-4.8); Lymphocytes % (A) 21 %; MCH 28.8 pg (25.0-35.0); MCHC 35.6 g/dL (31.0-37.0); MCV 80.9 fL (80.0-100.0); Mean Platelet Volume 9.5; Monocytes # (A) 0.4 k/uL (0-1.0); Monocytes % (A) 7 %; Neutrophils # (A) 3.8 k/uL (1.3-7.7); Neutrophils % (A) 67 %; Platelet Count 147 k/uL (150-450); RBC 5.51 m/uL (4.30-5.90); RDW 13.9 % (11.5-15.5); WBC 5.7 k/uL (3.8-10.6)
[2021-12-28 13:00] LABS: Calcium 9.7 mg/dL (8.4-10.2); Magnesium 1.9 mg/dL (1.6-2.3); Potassium 4.8 mmol/L (3.5-5.1)
[2021-12-28 13:08] LABS: Partial Thromboplastin Time 25.5 sec (22.0-30.0); Prothrombin Time 10.9 sec (9.0-12.0)
--- NOTE | 2021-12-28 13:38 | XR ---
EXAMINATION TYPE: XR chest 2V DATE OF EXAM: 12/28/2021 COMPARISON: 12/04/2021 HISTORY: Chest pain TECHNIQUE: Frontal and lateral views of the chest are obtained. FINDINGS: There is no focal air space opacity, pleural effusion, or pneumothorax seen. The cardiac silhouette size is within normal limits. The osseous structures are intact. IMPRESSION: No acute cardiopulmonary process.
[2021-12-28] MEDS ORDERED: ASPIRIN 81 MG PO STA (14:30)
--- NOTE | 2021-12-28 14:32 | ED ---
General Adult HPI - General Chief complaint: Chest Pain Stated complaint: Chest pain,nausea,vomiting,sent by PCP Time Seen by Provider: 12/28/21 14:17 Source: patient Mode of arrival: ambulatory Limitations: no limitations - History of Present Illness Initial comments: Dictation was produced using [employer] dictation software. please excuse any gramma tical, word or spelling errors. Chief Complaint: 86-year-old male past medical history of cardiac disease presents to the ER for chest pain History of Present Illness: 86-year-old male he has multiple comorbidities. Presents to the emergency department for 7 days of chest pain. History of present illness mostly obtained from sister was at the bedside. She is knowledgeable about patient's medical condition. Patient's history of coronary artery disease. He is having some chest pain earlier this week when he took a nitroglycerin improved his symptoms. Patient had multiple bouts following and thought perhaps it was reflux when he took some Pepcid. Patient states that the pain does not radiate to shoulders or arms or jaw. He did report that the time he took the nitroglycerin that his symptoms did improve. Patient has any active symptoms at this time. He does complain of associated nausea but no diaphoresis. The ROS documented in this emergency department record has been reviewed and confirmed by me. Those systems with pertinent positive or negative responses reinoso ve been documented in the HPI. All other systems are other negative and/or noncontributory. PHYSICAL EXAM: General Impression: Alert and oriented x3, not in acute distress HEENT: Normocephalic atraumatic, extra-ocular movements intact, pupils equal and reactive to light bilaterally, mucous membranes moist. Cardiovascular: Heart regular rate and rhythm Chest: Able to complete full sentences, no retractions, no tachypnea Abdomen: abdomen soft, non-tender, non-distended, no organomegaly Musculoskeletal: Pulses present and equal in all extremities, no peripheral edema Motor: no focal deficits noted Neurological: CN II-XII grossly intact, no focal motor or sensory deficits noted Skin: Intact with no visualized rashes Psych: Normal affect and mood ED course: 86-year-old well-appearing male with multiple comorbidities presents to the emergency department for 7 days of chest pain. His symptoms are atypical with typical features. Signs upon arrival are within acceptable limits. EKG does not show any signs of ischemia or infarction. Given patient's age and multiple risk factors there is concern for acute coronary syndrome. He is given aspirin will be admitted observation for cardiology consultation and cardiac monitoring. EKG interpretation: Ventricular rate 84, sinus rhythm, IA interval 140, QS 90, QTc 413. No IA prolongation, no QTC prolongation, no ST or T-wave changes noted. Overall, this EKG is unremarkable - Related Data Home Medications Medication Instructions Recorded Confirmed Simvastatin [Zocor] 20 mg PO DAILY@1200 01/12/14 12/04/21 Omeprazole 20 mg PO BID 01/22/19 12/04/21 Fish Oil/Dha/Epa [Fish Oil 1,200 1 cap PO DAILY 12/04/21 12/04/21 mg Fish Oil] Fluticasone Nasal [place] [Flonase 2 spray EA NOSTRIL DAILY 12/04/21 12/04/21 Nasal [place]] Losartan [Cozaar] 25 mg PO DAILY@1200 12/04/21 12/04/21 Metoprolol Tartrate [Lopressor] 25 mg PO HS 12/04/21 12/04/21 Multivit-Min/FA/Lycopen/Lutein 1 tab PO DAILY 12/04/21 12/04/21 [Centrum Silver Men Tablet] Organic Mct Oil 1 tsp PO DAILY 12/04/21 12/04/21 Previous Rx's Medication Instructions Recorded Acetaminophen Tab [Tylenol] 650 mg PO Q6HR PRN tab 12/06/21 Aspirin 81 mg PO DAILY 30 Days #30 tab 12/06/21 Cyanocobalamin (Vitamin B-12) 1,000 mcg PO DAILY #30 tablet 12/06/21 [Vitamin B-12] amLODIPine [Norvasc] 10 mg PO DAILY #30 tab 12/06/21 levETIRAcetam [Keppra] 500 mg PO Q12HR #60 tab 12/06/21 Allergies Allergy/AdvReac Type Severity Reaction Status Date / Time No Known Allergies Allergy Verified 12/28/21 12:07 Review of Systems ROS Statement: Those systems with pertinent positive or pertinent negative responses have been documented in the HPI. ROS Other: All systems not noted in ROS Statement are negative. Past Medical History Past Medical History: Coronary Artery Disease (CAD), Cancer, Chest Pain / Angina, GERD/Reflux, Hyperlipidemia, Memory Impairment, Myocardial Infarction ([place]), Osteoarthritis (OA) Additional Past Medical History / Comment(s): hx Prostate Cancer, PT rt shoulder r/t injury. 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 LEFT HAND SX. "whole in esophageal repair. 4 stents put in heart." egd Past Anesthesia/Blood Transfusion Reactions: No Reported Reaction Date of Last Stent Placement:: 01/14/14 Past Psychological History: No Psychological Hx Reported Smoking Status: Former smoker Past Alcohol Use History: Unable to Obtain Past Drug Use History: None Reported - Past Family History Mother Family Medical History: Cancer Additional Family Medical History / Comment(s): LEUKEMIA Father Family Medical History: Cancer Additional Family Medical History / Comment(s): LUNG General Exam Limitations: no limitations Course Vital Signs 12/28/21 12/28/21 12:05 14:41 Temperature 97.5 F L Pulse Rate 84 82 Respiratory 16 20 Rate Blood Pressure 126/89 157/108 O2 Sat by Pulse 99 98 Oximetry Medical Decision Making - Lab Data Result diagrams: 12/28/21 12:16 12/28/21 12:16 Lab Results 12/28/21 12/28/21 12/28/21 Range/Units 12:16 12:16 12:16 WBC 5.7 (3.8-10.6) k/uL RBC 5.51 (4.30-5.90) m/uL Hgb 15.8 (13.0-17.5) gm/dL Hct 44.6 (39.0-53.0) % MCV 80.9 (80.0-100.0) fL MCH 28.8 (25.0-35.0) pg MCHC 35.6 (31.0-37.0) g/dL RDW 13.9 (11.5-15.5) % Plt Count 147 L (150-450) k/uL MPV 9.5 Neutrophils % 67 % Lymphocytes % 21 % Monocytes % 7 % Eosinophils % 2 % Basophils % 1 % Neutrophils # 3.8 (1.3-7.7) k/uL Lymphocytes # 1.2 (1.0-4.8) k/uL Monocytes # 0.4 (0-1.0) k/uL Eosinophils # 0.1 (0-0.7) k/uL Basophils # 0.0 (0-0.2) k/uL PT 10.9 (9.0-12.0) sec INR 1.0 (<1.2) APTT 25.5 (22.0-30.0) sec Sodium 141 (137-145) mmol/L Potassium 4.8 (3.5-5.1) mmol/L Chloride 100 (98-107) mmol/L Carbon Dioxide 28 (22-30) mmol/L Anion Gap 13 mmol/L BUN 20 (9-20) mg/dL Creatinine 1.05 (0.66-1.25) mg/dL Est GFR (CKD-EPI)AfAm 75 (>60 ml/min/1.73 sqM) Est GFR (CKD-EPI)NonAf 65 (>60 ml/min/1.73 sqM) Glucose 106 H (74-99) mg/dL Calcium 9.7 (8.4-10.2) mg/dL Magnesium 1.9 (1.6-2.3) mg/dL Total Bilirubin 1.0 (0.2-1.3) mg/dL AST 22 (17-59) U/L ALT 21 (4-49) U/L Alkaline Phosphatase 88 (38-126) U/L Troponin I (0.000-0.034) ng/mL Total Protein 7.0 (6.3-8.2) g/dL Albumin 5.0 (3.5-5.0) g/dL 12/28/21 Range/Units 12:16 WBC (3.8-10.6) k/uL RBC (4.30-5.90) m/uL Hgb (13.0-17.5) gm/dL Hct (39.0-53.0) % MCV (80.0-100.0) fL MCH (25.0-35.0) pg MCHC (31.0-37.0) g/dL RDW (11.5-15.5) % Plt Count (150-450) k/uL MPV Neutrophils % % Lymphocytes % % Monocytes % % Eosinophils % % Basophils % % Neutrophils # (1.3-7.7) k/uL Lymphocytes # (1.0-4.8) k/uL Monocytes # (0-1.0) k/uL Eosinophils # (0-0.7) k/uL Basophils # (0-0.2) k/uL PT (9.0-12.0) sec INR (<1.2) APTT (22.0-30.0) sec Sodium (137-145) mmol/L Potassium (3.5-5.1) mmol/L Chloride (98-107) mmol/L Carbon Dioxide (22-30) mmol/L Anion Gap mmol/L BUN (9-20) mg/dL Creatinine (0.66-1.25) mg/dL Est GFR (CKD-EPI)AfAm (>60 ml/min/1.73 sqM) Est GFR (CKD-EPI)NonAf (>60 ml/min/1.73 sqM) Glucose (74-99) mg/dL Calcium (8.4-10.2) mg/dL Magnesium (1.6-2.3) mg/dL Total Bilirubin (0.2-1.3) mg/dL AST (17-59) U/L ALT (4-49) U/L Alkaline Phosphatase (38-126) U/L Troponin I <0.012 (0.000-0.034) ng/mL Total Protein (6.3-8.2) g/dL Albumin (3.5-5.0) g/dL Disposition Clinical Impression: Chest pain Disposition: ADMITTED IP TO THIS HOSP Condition: Fair Referrals: Talha Spencer MD [Primary Care Provider] - 1-2 days Decision Time: 14:44
[2021-12-28] MEDS ORDERED: ONDANSETRON 4 MG/2 ML VIAL IVP STA (14:57)
[2021-12-28] MEDS ORDERED: ONDANSETRON 4 MG/2 ML VIAL IVP PRN (17:06)
[2021-12-28] MEDS: SODIUM CHLORIDE 0.9% 1,000 ML IV SCH (17:11)
--- NOTE | 2021-12-28 18:43 | P.HPIM ---
History of Present Illness H&P Date: 12/28/21 Chief Complaint: Chest pain/nausea/vomiting 86-year-old male he has multiple comorbidities. Presents to the emergency department for 7 days of chest pain. History of present illness mostly obtained from sister was at the bedside. She is knowledgeable about patient's medical condition. Patient's history of coronary artery disease. He is having some chest pain earlier this week when he took a nitroglycerin improved his symptoms. Patient had multiple bouts following and thought perhaps it was reflux when he took some Pepcid. Patient states that the pain does not radiate to shoulders or arms or jaw. He did report that the time he took the nitroglycerin that his s ymptoms did improve. Patient has any active symptoms at this time. He does complain of associated nausea but no diaphoresis. EKG interpretation: Ventricular rate 84, sinus rhythm, HI interval 140, QS 90, QTc 413. No HI prolongation, no QTC prolongation, no ST or T-wave changes noted. Overall, this EKG is unremarkable Blood work reveals WBC 5.7, hemoglobin 15.8 and platelet count of 147, sodium 141, potassium 4.8, BUN/creatinine of 20/1.05 and blood glucose of 106; troponin less than 0.012 Review of Systems REVIEW OF SYSTEMS: CONSTITUTIONAL: No fever, no malaise, no fatigue. HEENT: No recent visual problems or hearing problems. Denied any sore throat. CARDIOVASCULAR: No chest pain, orthopnea, PND, no palpitations, no syncope. PULMONARY: No shortness of breath, no cough, no hemoptysis. GASTROINTESTINAL: Complains of nausea, vomiting, no abdominal pain. NEUROLOGICAL: No headaches, no weakness, no numbness. HEMATOLOGICAL: Denies any bleeding or petechiae. GENITOURINARY: Denies any burning micturition, frequency, or urgency. MUSCULOSKELETAL/RHEUMATOLOGICAL: Denies any joint pain, swelling, or any muscle pain. ENDOCRINE: Denies any polyuria or polydipsia. The rest of the 14-point review of systems is negative. Past Medical History Past Medical History: Coronary Artery Disease (CAD), Cancer, Chest Pain / Angina, GERD/Reflux, Hyperlipidemia, Memory Impairment, Myocardial Infarction ([place]), Osteoarthritis ([place]) Additional Past Medical History / Comment(s): hx Prostate Cancer, PT rt shoulder r/t injury. 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 LEFT HAND SX. "whole in esophageal repair. 4 stents put in heart." egd Past Anesthesia/Blood Transfusion Reactions: No Reported Reaction Date of Last Stent Placement:: 01/14/14 Past Psychological History: No Psychological Hx Reported Smoking Status: Former smoker Past Alcohol Use History: Unable to Obtain Past Drug Use History: None Reported - Past Family History Mother Family Medical History: Cancer Additional Family Medical History / Comment(s): LEUKEMIA Father Family Medical History: Cancer Additional Family Medical History / Comment(s): LUNG Medications and Allergies Home Medications Medication Instructions Recorded Confirmed Type Simvastatin [Zocor] 20 mg PO DAILY@1200 01/12/14 12/28/21 History Omeprazole 20 mg PO BID 01/22/19 12/28/21 History Fish Oil/Dha/Epa [Fish Oil 1,200 1 cap PO DAILY 12/04/21 12/28/21 History mg Fish Oil] Fluticasone Nasal [place] [Flonase 2 spray EA NOSTRIL DAILY 12/04/21 12/28/21 History Nasal [place]] Losartan [Cozaar] 25 mg PO DAILY@1200 12/04/21 12/28/21 History Metoprolol Tartrate [Lopressor] 25 mg PO HS 12/04/21 12/28/21 History Multivit-Min/FA/Lycopen/Lutein 1 tab PO DAILY 12/04/21 12/28/21 History [Centrum Silver Men Tablet] Organic Mct Oil 1 tsp PO DAILY 12/04/21 12/28/21 History Acetaminophen Tab [Tylenol] 650 mg PO Q6HR PRN tab 12/06/21 12/28/21 Rx Aspirin 81 mg PO DAILY 30 Days #30 tab 12/06/21 12/28/21 Rx Cyanocobalamin (Vitamin B-12) 1,000 mcg PO DAILY #30 tablet 12/06/21 12/28/21 Rx [Vitamin B-12] amLODIPine [Norvasc] 10 mg PO DAILY #30 tab 12/06/21 12/28/21 Rx levETIRAcetam [Keppra] 500 mg PO Q12HR #60 tab 12/06/21 12/28/21 Rx Nitroglycerin Sl Tabs [Nitrostat] 0.4 mg SUBLINGUAL Q5M PRN 12/28/21 12/28/21 History Allergies Allergy/AdvReac Type Severity Reaction Status Date / Time No Known Allergies Allergy Verified 12/28/21 12:07 Physical Exam Vitals: Vital Signs Temp Pulse Resp BP Pulse Ox 12/28/21 14:41 82 20 157/108 98 12/28/21 12:05 97.5 F L 84 16 126/89 99 Intake and Output 12/27/21 12/28/21 12/28/21 22:59 06:59 14:59 Other: Weight 94.801 kg PHYSICAL EXAMINATION: GENERAL: The patient is alert and oriented x3, not in any acute distress. Well developed, well nourished. HEENT: Pupils are round and equally reacting to light. EOMI. No scleral icterus. No conjunctival pallor. Normocephalic, atraumatic. No pharyngeal erythema. No thyromegaly. CARDIOVASCULAR: S1 and S2 present. No murmurs, rubs, or gallops. PULMONARY: Chest is clear to auscultation, no wheezing or crackles. ABDOMEN: Soft, nontender, nondistended, normoactive bowel sounds. No palpable organomegaly. MUSCULOSKELETAL: No joint swelling or deformity. EXTREMITIES: No cyanosis, clubbing, or pedal edema. NEUROLOGICAL: Gross neurological examination did not reveal any focal deficits. SKIN: No rashes. Results CBC & Chem 7: 12/28/21 12:16 12/28/21 12:16 Labs: Abnormal Lab Results - Last 24 Hours (Table) 12/28/21 12/28/21 Range/Units 12:16 12:16 Plt Count 147 L (150-450) k/uL Glucose 106 H (74-99) mg/dL Assessment and Plan Assessment: 1. Chest pain; history of coronary artery disease with NC in the past 2. Intractable nausea and vomiting; symptomatic treatment; continue with IV fluid hydration; we will start with a clear liquid diet once stable 3. Hyperlipidemia; simvastatin 20 mg by mouth daily at bedtime 4. Hypertension; continue with home dose of Norvasc, losartan and metoprolol 5. Gastroesophageal reflux disease; patient continues to have nausea and vomiting; we will start patient on Protonix 40 mg IV every 12 hours 6. Seizure disorder; continue with home dose of Keppra 500 mg by mouth twice a day DVT prophylaxis; SCDs/subcu heparin CODE STATUS; full code
[2021-12-28] MEDS: PANTOPRAZOLE 40 MG/10 ML VIAL IVP SCH (20:51)
[2021-12-28] MEDS: levETIRAcetam 500 MG TAB PO SCH (20:51)
[2021-12-28] MEDS ORDERED: METOPROLOL TARTRATE 25 MG TAB PO SCH (21:00)
[2021-12-29] MEDS: SODIUM CHLORIDE 0.9% 1,000 ML IV SCH (05:29)
[2021-12-29 08:00] LABS: African American GFR (CKD) 86 (>60 ml/min/1.73 sqM); Anion Gap 9 mmol/L; Blood Urea Nitrogen 22 mg/dL (9-20); Calcium 8.9 mg/dL (8.4-10.2); Carbon Dioxide 29 mmol/L (22-30); Chloride 102 mmol/L (98-107); Glucose 92 mg/dL (74-99); Non-African American GFR(CKD) 74 (>60 ml/min/1.73 sqM); Potassium 4.3 mmol/L (3.5-5.1); Sodium 140 mmol/L (137-145)
[2021-12-29 08:14] VITALS: RESP 18
[2021-12-29] MEDS ORDERED: amLODIPine 10 MG TAB PO SCH (09:00)
[2021-12-29] MEDS ORDERED: ASPIRIN 325 MG TAB PO SCH (09:00)
[2021-12-29] MEDS ORDERED: FLUTICASONE 50MCG/SPRAY NASAL 16GM EA NOSTRIL SCH (09:00)
--- NOTE | 2021-12-29 09:17 | P.CRDCN ---
History of Present Illness Consult date: 12/29/21 Chief complaint: Chest discomfort History of present illness: This is a very pleasant 86-year-old gentleman with a past medical history significant for CAD with prior stenting with unknown details at this point as well as carotid atherosclerosis and status post a stenting of the left internal and left common carotid artery as well as hypertension and dyslipidemia presented to the hospital with nausea and vomiting and a chest discomfort. Luisito arently the patient ate outside in a restaurant and since then he has not been feeding well. He has been experiencing symptoms of nausea and vomiting and subsequently he started experiencing discomfort in the chest. He is somewhat poor historian but he described the discomfort in the middle of the chest and lower part of the chest as a sharp kind of discomfort with no radiation and no associated symptoms of shortness of breath or sweating or dizziness or lightheadedness or any feeling of heart racing or fluttering or presyncope or syncope. He presented to the hospital for further investigation. He underwent an investigation including an EKG which showed sinus rhythm was no significant ST or T-wave abnormalities. He underwent cardiac enzymes came in to be unremarkable. He is feeling better. Currently he is chest pain-free. The symptoms of nausea and vomiting have improved as well. Past Medical History Past Medical History: Coronary Artery Disease (CAD), Cancer, Chest Pain / Angina, GERD/Reflux, Hyperlipidemia, Memory Impairment, Myocardial Infarction ([place]), Osteoarthritis ([place]) Additional Past Medical History / Comment(s): hx Prostate Cancer, PT rt shoulder r/t injury. 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 LEFT HAND SX. "whole in esophageal repair. 4 stents put in heart." egd Past Anesthesia/Blood Transfusion Reactions: No Reported Reaction Date of Last Stent Placement:: 01/14/14 Past Psychological History: No Psychological Hx Reported Smoking Status: Former smoker Past Alcohol Use History: Unable to Obtain Past Drug Use History: None Reported - Past Family History Mother Family Medical History: Cancer Additional Family Medical History / Comment(s): LEUKEMIA Father Family Medical History: Cancer Additional Family Medical History / Comment(s): LUNG Medications and Allergies Home Medications Medication Instructions Recorded Confirmed Type Simvastatin [Zocor] 20 mg PO DAILY@1200 01/12/14 12/28/21 History Omeprazole 20 mg PO BID 01/22/19 12/28/21 History Fish Oil/Dha/Epa [Fish Oil 1,200 1 cap PO DAILY 12/04/21 12/28/21 History mg Fish Oil] Fluticasone Nasal [place] [Flonase 2 spray EA NOSTRIL DAILY 12/04/21 12/28/21 History Nasal [place]] Losartan [Cozaar] 25 mg PO DAILY@1200 12/04/21 12/28/21 History Metoprolol Tartrate [Lopressor] 25 mg PO HS 12/04/21 12/28/21 History Multivit-Min/FA/Lycopen/Lutein 1 tab PO DAILY 12/04/21 12/28/21 History [Centrum Silver Men Tablet] Organic Mct Oil 1 tsp PO DAILY 12/04/21 12/28/21 History Acetaminophen Tab [Tylenol] 650 mg PO Q6HR PRN tab 12/06/21 12/28/21 Rx Aspirin 81 mg PO DAILY 30 Days #30 tab 12/06/21 12/28/21 Rx Cyanocobalamin (Vitamin B-12) 1,000 mcg PO DAILY #30 tablet 12/06/21 12/28/21 Rx [Vitamin B-12] amLODIPine [Norvasc] 10 mg PO DAILY #30 tab 12/06/21 12/28/21 Rx levETIRAcetam [Keppra] 500 mg PO Q12HR #60 tab 12/06/21 12/28/21 Rx Nitroglycerin Sl Tabs [Nitrostat] 0.4 mg SUBLINGUAL Q5M PRN 12/28/21 12/28/21 History Allergies Allergy/AdvReac Type Severity Reaction Status Date / Time No Known Allergies Allergy Verified 12/28/21 12:07 Physical Exam Vitals: Vital Signs Temp Pulse Pulse Resp BP BP Pulse Ox 12/29/21 07:00 97.6 F 66 18 148/82 94 L 12/29/21 03:00 98.1 F 69 17 125/73 98 12/28/21 20:26 98.3 F 90 18 168/97 100 12/28/21 20:00 16 12/28/21 16:55 97.6 F 69 16 133/70 100 12/28/21 16:14 68 16 148/90 99 12/28/21 15:20 81 20 145/96 100 12/28/21 14:41 82 20 157/108 98 12/28/21 12:05 97.5 F L 84 16 126/89 99 Intake and Output 12/28/21 12/29/21 12/29/21 22:59 06:59 14:59 Intake Total 0 Balance 0 Intake: Oral 0 Other: # Voids 1 0 # Bowel Movements 0 Weight 94.801 kg - Constitutional General appearance: no acute distress - Respiratory Respiratory: bilateral: CTA - Cardiovascular Rhythm: regular Heart sounds: normal: S1, S2 Results 12/28/21 12:16 12/29/21 06:24 Cardiac Enzymes 12/28/21 12/28/21 12/28/21 Range/Units 12:16 12:16 15:52 AST 22 (17-59) U/L Troponin I <0.012 <0.012 (0.000-0.034) ng/mL 12/28/21 Range/Units 19:25 AST (17-59) U/L Troponin I <0.012 (0.000-0.034) ng/mL Coagulation 12/28/21 Range/Units 12:16 PT 10.9 (9.0-12.0) sec APTT 25.5 (22.0-30.0) sec CBC 12/28/21 Range/Units 12:16 WBC 5.7 (3.8-10.6) k/uL RBC 5.51 (4.30-5.90) m/uL Hgb 15.8 (13.0-17.5) gm/dL Hct 44.6 (39.0-53.0) % Plt Count 147 L (150-450) k/uL Comprehensive Metabolic Panel 12/28/21 12/29/21 Range/Units 12:16 06:24 Sodium 141 140 (137-145) mmol/L Potassium 4.8 4.3 (3.5-5.1) mmol/L Chloride 100 102 (98-107) mmol/L Carbon Dioxide 28 29 (22-30) mmol/L BUN 20 22 H (9-20) mg/dL Creatinine 1.05 0.94 (0.66-1.25) mg/dL Glucose 106 H 92 (74-99) mg/dL Calcium 9.7 8.9 (8.4-10.2) mg/dL AST 22 (17-59) U/L ALT 21 (4-49) U/L Alkaline Phosphatase 88 (38-126) U/L Total Protein 7.0 (6.3-8.2) g/dL Albumin 5.0 (3.5-5.0) g/dL Current Medications Generic Name Dose Route Start Last Admin Trade Name Freq PRN Reason Stop Dose Admin Amlodipine Besylate 10 mg 12/29/21 09:00 Amlodipine 10 Mg Tab PO DAILY [facility] Aspirin 325 mg 12/29/21 09:00 Aspirin 325 Mg Tab PO DAILY [facility] Atorvastatin Calcium 10 mg 12/29/21 12:00 Atorvastatin 10 Mg Tab PO DAILY@1200 [facility] Fluticasone Propionate 2 spray 12/29/21 09:00 Fluticasone 50mcg/[place] Nasal 16gm EA NOSTRIL DAILY [facility] Sodium Chloride 1,000 mls @ 75 mls/hr 12/28/21 17:15 12/29/21 05:29 Saline 0.9% IV 75 mls/hr .[id number] LAURA Administration Levetiracetam 500 mg 12/28/21 21:00 12/28/21 20:51 Levetiracetam 500 Mg Tab PO 500 mg Q12HR LAURA Administration Losartan Potassium 25 mg 12/29/21 12:00 Losartan 25 Mg Tab PO DAILY@1200 LAURA Metoprolol Tartrate 25 mg 12/28/21 21:00 12/28/21 20:51 Metoprolol Tartrate 25 Mg Tab PO 25 mg HS LAURA Administration Ondansetron HCl 4 mg 12/28/21 17:06 Ondansetron 4 Mg/2 Ml Vial IVP Q6HR PRN Nausea And Vomiting Pantoprazole Sodium 40 mg 12/28/21 21:00 12/28/21 20:51 Pantoprazole 40 Mg/10 Ml Vial IVP 40 mg BID LAURA Administration Intake and Output 12/28/21 12/29/21 12/29/21 22:59 06:59 14:59 Intake Total 0 Balance 0 Intake: Oral 0 Other: # Voids 1 0 # Bowel Movements 0 Weight 94.801 kg 12/28/21 12:16 12/29/21 06:24 Assessment and Plan Assessment: Assessment Symptoms of nausea and vomiting have improved Chest discomfort which has improved as well Coronary artery disease with prior stenting Carotid disease with [place] vascularization Multiple comorbid conditions Plan Acute coronary event was ruled out The chest discomfort is likely related to the recurrent nausea and vomiting. Even though severe CAD to be ruled out probably as an outpatient since he has been asymptomatic The patient potentially can be discharged home if he remains asymptomatic.
[2021-12-29] MEDS: levETIRAcetam 500 MG TAB PO SCH (09:36)
[2021-12-29] MEDS: PANTOPRAZOLE 40 MG/10 ML VIAL IVP SCH (09:37)
[2021-12-29] MEDS ORDERED: ATORVASTATIN 10 MG TAB PO SCH (12:00)
[2021-12-29] MEDS ORDERED: LOSARTAN 25 MG TAB PO SCH (12:00)
[2021-12-29 13:41] VITALS: BP 134/80; PULSE 59; TEMP 98.6
--- NOTE | 2021-12-29 15:12 | P.DS ---
Providers Date of admission: 12/28/21 14:42 Expected date of discharge: 12/29/21 Attending physician: Elif Herrera MD Consults: 12/28/21 14:42 Consult Physician Urgent Consulting Provider: Madi Blancas Consult Reason/Comments: chest pain Do you want consulting provider notified?: Yes Primary care physician: Talha Higgins [facility] Course: 86-year-old male he has multiple comorbidities. Presents to the emergency department for 7 days of chest pain. History of present illness mostly obtained from sister was at the bedside. She is knowledgeable about patient's medical condition. Patient's history of coronary artery disease. He is having some chest pain earlier this week when he took a nitroglycerin improved his symptoms. Patient had multiple bouts following and thought perhaps it was reflux when he took some Pepcid. Patient states that the pain does not radiate to shoulders or arms or jaw. He did report that the time he took the nitroglycerin that his s ymptoms did improve. Patient has any active symptoms at this time. He does complain of associated nausea but no diaphoresis. EKG interpretation: Ventricular rate 84, sinus rhythm, WI interval 140, QS 90, QTc 413. No WI prolongation, no QTC prolongation, no ST or T-wave changes noted. Overall, this EKG is unremarkable Blood work reveals WBC 5.7, hemoglobin 15.8 and platelet count of 147, sodium 141, potassium 4.8, BUN/creatinine of 20/1.05 and blood glucose of 106; troponin less than 0.012 1. Chest pain; history of coronary artery disease with PR in the past 2. Intractable nausea and vomiting; symptomatic treatment; continue with IV fluid hydration; we will start with a clear liquid diet once stable 3. Hyperlipidemia; simvastatin 20 mg by mouth daily at bedtime 4. Hypertension; continue with home dose of Norvasc, losartan and metoprolol 5. Gastroesophageal reflux disease; patient continues to have nausea and vomiting; we will start patient on Protonix 40 mg IV every 12 hours 6. Seizure disorder; continue with home dose of Keppra 500 mg by mouth twice a day Patient was evaluated by cardiology; The chest discomfort is likely related to the recurrent nausea and vomiting. Even though severe CAD to be ruled out probably as an outpatient since he has been asymptomatic The patient potentially can be discharged home if he remains asymptomatic. Patient remained stable and is being discharged in a stable condition Patient Condition at Discharge: Fair Plan - Discharge Summary Discharge Rx Participant: No New Discharge Prescriptions: No Action Simvastatin [Zocor] 20 mg PO DAILY@1200 Omeprazole 20 mg PO BID Fish Oil/Dha/Epa [Fish Oil 1,200 mg Fish Oil] 1 cap PO DAILY Fluticasone Nasal [place] [Flonase Nasal [place]] 2 spray EA NOSTRIL DAILY Acetaminophen Tab [Tylenol] 650 mg PO Q6HR PRN tab PRN Reason: Mild Pain Or Fever > 100.5 Metoprolol Tartrate [Lopressor] 25 mg PO HS Losartan [Cozaar] 25 mg PO DAILY@1200 Organic Mct Oil 1 tsp PO DAILY Multivit-Min/FA/Lycopen/Lutein [Centrum Silver Men Tablet] 1 tab PO DAILY amLODIPine [Norvasc] 10 mg PO DAILY #30 tab Aspirin 81 mg PO DAILY 30 Days #30 tab levETIRAcetam [Keppra] 500 mg PO Q12HR #60 tab Cyanocobalamin (Vitamin B-12) [Vitamin B-12] 1,000 mcg PO DAILY #30 tablet Nitroglycerin Sl Tabs [Nitrostat] 0.4 mg SUBLINGUAL Q5M PRN PRN Reason: Chest Pain Discharge Medication List Simvastatin [Zocor] 20 mg PO DAILY@1200 01/12/14 [History] Omeprazole 20 mg PO BID 01/22/19 [History] Fish Oil/Dha/Epa [Fish Oil 1,200 mg Fish Oil] 1 cap PO DAILY 12/04/21 [History] Fluticasone Nasal [place] [Flonase Nasal [place]] 2 spray EA NOSTRIL DAILY 12/04/21 [History] Losartan [Cozaar] 25 mg PO DAILY@1200 12/04/21 [History] Metoprolol Tartrate [Lopressor] 25 mg PO HS 12/04/21 [History] Multivit-Min/FA/Lycopen/Lutein [Centrum Silver Men Tablet] 1 tab PO DAILY 12/04/21 [History] Organic Mct Oil 1 tsp PO DAILY 12/04/21 [History] Acetaminophen Tab [Tylenol] 650 mg PO Q6HR PRN tab 12/06/21 [Rx] Aspirin 81 mg PO DAILY 30 Days #30 tab 12/06/21 [Rx] Cyanocobalamin (Vitamin B-12) [Vitamin B-12] 1,000 mcg PO DAILY #30 tablet 12/06/21 [Rx] amLODIPine [Norvasc] 10 mg PO DAILY #30 tab 12/06/21 [Rx] levETIRAcetam [Keppra] 500 mg PO Q12HR #60 tab 12/06/21 [Rx] Nitroglycerin Sl Tabs [Nitrostat] 0.4 mg SUBLINGUAL Q5M PRN 12/28/21 [History] Follow up Appointment(s)/Referral(s): Talha Spencer MD [Primary Care Provider] - 1-2 days
[2021-12-29 17:40] LABS: LDL Cholesterol,Calculated 70.5 mg/dL (0.0-131.0)
== END 2021-12-29 15:41 | disposition home or self-care (01) ==
LOC: EC 12:01 → 6NMEDSUR 14:42
PROVIDERS: ADMIT Internal Medicine; ATTEND Internal Medicine
DX: R07.89 Other chest pain (principal); K21.9 Gastro-esophageal reflux disease without esophagitis; I25.10 Atherosclerotic heart disease of native coronary artery without angina pectoris; I25.2 Old myocardial infarction; I10 Essential (primary) hypertension; Z79.899 Other long term (current) drug therapy; Z79.82 Long term (current) use of aspirin; Z85.46 Personal history of malignant neoplasm of prostate; Z98.42 Cataract extraction status, left eye; Z96.1 Presence of intraocular lens; Z87.891 Personal history of nicotine dependence; Z80.6 Family history of leukemia; Z80.1 Family history of malignant neoplasm of trachea, bronchus and lung
CPT/HCPCS: 96376; 96375; 96374; 99285; 36415; 93005; 80061; 80053; 80048; 83735; 84484; 85025; 85610; 85730; 71046; G0378 ×2; J2405; C9113 ×2

== ENCOUNTER 2022-06-22 10:27 | Inpatient (IN) | payer MEDICARE, OTHER ==
[2022-06-22] MEDS ORDERED: IPRATROPIUM-ALBUTEROL 3 ML NEB INHALATION STA (11:05)
--- NOTE | 2022-06-22 11:09 | ED ---
Weakness HPI - General Chief complaint: Weakness Stated complaint: can't swallow cough diarrhea Time Seen by Provider: 06/22/22 10:47 Source: patient, family, RN notes reviewed Mode of arrival: wheelchair Limitations: no limitations - History of Present Illness Initial comments: 86-year-old male history of coronary artery disease hyperlipidemia some cog nitive deficits and Gramajo's esophagus who was brought in by his daughter for evaluation of generalized weakness persisting cough diarrhea weakness some exertional dyspnea this morning. He was seen at [facility] yesterday apparently for similar symptoms is suggestive discharged. He denies any chest pain fevers chills or sweats he apparently was a former smoker quit 50 years ago but he also worked as a day care supervisor lifelong but has never been diagnosed with any lung issues. No other current complaints or modifying factors. MD Complaint: generalized weakness - Related Data Home Medications Medication Instructions Recorded Confirmed Simvastatin [Zocor] 20 mg PO DAILY@1200 01/12/14 12/28/21 Fish Oil/Dha/Epa [Fish Oil 1,200 1 cap PO DAILY 12/04/21 12/28/21 mg Fish Oil] Fluticasone Nasal [place] [Flonase 2 spray EA NOSTRIL DAILY 12/04/21 12/28/21 Nasal [place]] Losartan [Cozaar] 25 mg PO DAILY@1200 12/04/21 12/28/21 Metoprolol Tartrate [Lopressor] 25 mg PO HS 12/04/21 12/28/21 Multivit-Min/FA/Lycopen/Lutein 1 tab PO DAILY 12/04/21 12/28/21 [Centrum Silver Men Tablet] Organic Mct Oil 1 tsp PO DAILY 12/04/21 12/28/21 Nitroglycerin Sl Tabs [Nitrostat] 0.4 mg SUBLINGUAL Q5M PRN 12/28/21 12/28/21 Previous Rx's Medication Instructions Recorded Acetaminophen Tab [Tylenol] 650 mg PO Q6HR PRN tab 12/06/21 Aspirin 81 mg PO DAILY 30 Days #30 tab 12/06/21 Cyanocobalamin (Vitamin B-12) 1,000 mcg PO DAILY #30 tablet 12/06/21 [Vitamin B-12] amLODIPine [Norvasc] 10 mg PO DAILY #30 tab 12/06/21 levETIRAcetam [Keppra] 500 mg PO Q12HR #60 tab 12/06/21 Pantoprazole [Protonix] 40 mg PO BID 30 Days #60 tab 12/29/21 Allergies Allergy/AdvReac Type Severity Reaction Status Date / Time No Known Allergies Allergy Verified 06/22/22 10:37 Review of Systems ROS Statement: Those systems with pertinent positive or pertinent negative responses have been documented in the HPI. ROS Other: All systems not noted in ROS Statement are negative. Past Medical History Past Medical History: Coronary Artery Disease (CAD), Cancer, Chest Pain / Angina, GERD/Reflux, Hyperlipidemia, Memory Impairment, Myocardial Infarction (ME), Osteoarthritis (OA) Additional Past Medical History / Comment(s): hx Prostate Cancer, PT rt shoulder r/t injury. 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 LEFT HAND SX. "whole in esophageal repair. 4 stents put in heart." egd Past Anesthesia/Blood Transfusion Reactions: No Reported Reaction Date of Last Stent Placement:: 01/14/14 Past Psychological History: No Psychological Hx Reported Smoking Status: Former smoker Past Alcohol Use History: Unable to Obtain Past Drug Use History: None Reported - Past Family History Mother Family Medical History: Cancer Additional Family Medical History / Comment(s): LEUKEMIA Father Family Medical History: Cancer Additional Family Medical History / Comment(s): LUNG General Exam - General Exam Comments Initial Comments: This a well-developed well-nourished awake alert somewhat lethargic male Limitations: no limitations General appearance: alert, lethargic Head exam: Present: atraumatic, normocephalic, normal inspection Eye exam: Present: normal appearance, PERRL, EOMI. Absent: scleral icterus, conjunctival injection, periorbital swelling ENT exam: Present: mucous membranes dry Neck exam: Present: normal inspection, full ROM, other (No bruits some upper airway wheezing noted but no definitive stridor JVD or bruits). Absent: tenderness, meningismus, lymphadenopathy Respiratory exam: Present: wheezes, decreased breath sounds. Absent: respiratory distress, rales, rhonchi, stridor Cardiovascular Exam: Present: regular rate, normal rhythm, normal heart sounds. Absent: systolic murmur, diastolic murmur, rubs, gallop, clicks GI/Abdominal exam: Present: soft, normal bowel sounds. Absent: distended, tenderness, guarding, rebound, rigid Extremities exam: Present: normal inspection, full ROM, normal capillary refill. Absent: tenderness, pedal edema, joint swelling, calf tenderness Back exam: Present: normal inspection Neurological exam: Present: alert, oriented X3, CN II-XII intact Psychiatric exam: Present: normal affect, normal mood Skin exam: Present: warm, dry, intact, normal color. Absent: rash Course Vital Signs 06/22/22 06/22/22 06/22/22 10:32 12:21 12:29 Temperature 98.2 F Pulse Rate 62 67 85 Respiratory 18 16 16 Rate Blood Pressure 132/87 O2 Sat by Pulse 100 Oximetry 06/22/22 12:54 Temperature Pulse Rate 89 Respiratory 20 Rate Blood Pressure O2 Sat by Pulse 95 Oximetry EKG Findings - EKG Results: EKG: interpreted by ERMD (EKG interpreted by nc sinus rhythm with rate 96 AL interval 153 QRS duration 99 QT since QTC 365/14 unifocal PVCs seen) Medical Decision Making - Medical Decision Making I did discuss findings with the patient as well as his family member was present. Patient does have evidence of failure to thrive with rhonchus spasm clinical dehydration he did apparently have diarrhea and does have a history of Gramajo's esophagus. I did discuss the case with Dr. Olmstead the patient be admitted for IV hydration and further evaluation. Patient was a former smoker who quit 50 years ago but also is a day care supervisor for many years so it is suspected is a component of lung disease present at this time. Repeat examination did reveal he still had wheezing some and the upper airway but also some transmitted and present in the lower airway.Was pt. sent in by a medical professional or institution (, PA, FIGHTING VEHICLE SYSTEMS MAINTAINER, urgent care, hospital, or usp...) When possible be specific @ -No Did you speak to anyone other than the patient for history (EMS, parent, family, police, friend...)? What history was obtained from this source @ -I did review the charting from [facility] from yesterday's visit Did you review nursing and triage notes (agree or disagree)? Why? @ -I reviewed and agree with nursing and triage notes Were old charts reviewed (outside hosp., previous admission, EMS record, old EKG, old radiological studies, urgent care reports/EKG's, usp records)? Report findings @ -[facility] old charts were reviewed Differential Diagnosis (chest pain, altered mental status, abdominal pain women, abdominal pain men, vaginal bleeding, weakness, fever, dyspnea, syncope, headache, dizziness, GI bleed, back pain, seizure, CVA, palpatations, mental health, musculoskeletal)? @ -Acute bronchospasm, dyspnea, dehydration, failure to thrive, diarrhea EKG interpreted by me (3pts min.). @ -As above X-rays interpreted by me (1pt min.). @ -As above CT interpreted by me (1pt min.). @ -None done U/S interpreted by me (1pt. min.). @ -None done What testing was considered but not performed or refused? (CT, X-rays, U/S, labs)? Why? @ -None What meds were considered but not given or refused? Why? @ -None Did you discuss the management of the patient with other professionals (professionals i.e. , PA, FIGHTING VEHICLE SYSTEMS MAINTAINER, lab, RT, psych nurse, social work lecturer, automobile body repair chief, teacher, articulation officer, child support case officer)? Give summary @ -With Dr. Olmstead Was smoking cessation discussed for >3mins.? @ -No Was critical care preformed (if so, how long)? @ -No Were there social determinants of health that impacted care today? How? (Homelessness, low income, unemployed, alcoholism, drug addiction, transportation, low edu. Level, literacy, decrease access to med. care, nursing home, rehab)? @ -Elderly, this is his second ER visit in 2 days Was there de-escalation of care discussed even if they declined (Discuss DNR or withdrawal of care, Hospice)? DNR status @ -No What co-morbidities impacted this encounter? (DM, HTN, Smoking, COPD, CAD, Cancer, CVA, ARF, Chemo, Hep., AIDS, mental health diagnosis, sleep apnea, morbid obesity)? @ -Coronary artery disease Gramajo's esophagus memory Prostate cancer, elderly] Was patient admitted / discharged? Hospital course, mention meds given and route, prescriptions, significant lab abnormalities, going to OR and other pertinent info. @ -hospital course the patient was admitted for inpatient evaluation treatment IV hydration Undiagnosed new problem with uncertain prognosis? @ -No Drug Therapy requiring intensive monitoring for toxicity (Heparin, Nitro, Insulin, Cardizem)? @ -No Were any procedures done? @ -No Diagnosis/symptom? @ -Dehydration, acute bronchospasm, failure to thrive, memory impairment, prostate cancer Acute, or Chronic, or Acute on Chronic? @ -Acute on chronic Uncomplicated (without systemic symptoms) or Complicated (systemic symptoms)? @ -default Side effects of treatment? @ -No Exacerbation, Progression, or Severe Exacerbation? @ -No Poses a threat to life or bodily function? How? (Chest pain, USA, ME, pneumonia, PE, COPD, DKA, ARF, appy, cholecystitis, CVA, Diverticulitis, Homicidal, Suicidal, threat to staff... and all critical care pts) @ -No - Lab Data Result diagrams: 06/22/22 11:12 06/22/22 11:12 Lab Results 06/22/22 06/22/22 06/22/22 Range/Units 11:12 11:12 11:12 WBC 3.7 L (3.8-10.6) k/uL RBC 4.87 (4.30-5.90) m/uL Hgb 14.0 (13.0-17.5) gm/dL Hct 39.8 (39.0-53.0) % MCV 81.6 (80.0-100.0) fL MCH 28.7 (25.0-35.0) pg MCHC 35.1 (31.0-37.0) g/dL RDW 13.9 (11.5-15.5) % Plt Count 99 L (150-450) k/uL MPV 9.0 Neutrophils % 70 % Lymphocytes % 17 % Monocytes % 8 % Eosinophils % 2 % Basophils % 0 % Neutrophils # 2.6 (1.3-7.7) k/uL Lymphocytes # 0.6 L (1.0-4.8) k/uL Monocytes # 0.3 (0-1.0) k/uL Eosinophils # 0.1 (0-0.7) k/uL Basophils # 0.0 (0-0.2) k/uL Manual Slide Review Performed RBC Morphology Normal Hyperchromasia FIGHTING VE[employer]LE [employer]S MAINTAINER D-Dimer 0.43 (<0.60) mg/L FEU Sodium 137 (137-145) mmol/L Potassium 3.8 (3.5-5.1) mmol/L Chloride 101 (98-107) mmol/L Carbon Dioxide 25 (22-30) mmol/L Anion Gap 11 mmol/L BUN 24 H (9-20) mg/dL Creatinine 0.99 (0.66-1.25) mg/dL Est GFR (CKD-EPI)AfAm 80 (>60 ml/min/1.73 sqM) Est GFR (CKD-EPI)NonAf 69 (>60 ml/min/1.73 sqM) Glucose 101 H (74-99) mg/dL Calcium 8.5 (8.4-10.2) mg/dL Magnesium 1.8 (1.6-2.3) mg/dL Total Bilirubin 1.0 (0.2-1.3) mg/dL AST 27 (17-59) U/L ALT 29 (4-49) U/L Alkaline Phosphatase 81 (38-126) U/L Creatine Kinase 125 (55-170) U/L Troponin I (0.000-0.034) ng/mL NT-Pro-B Natriuret Pep pg/mL Total Protein 6.3 (6.3-8.2) g/dL Albumin 4.0 (3.5-5.0) g/dL Influenza Type A (PCR) (Not Detectd) Influenza Type B (PCR) (Not Detectd) RSV (PCR) (Not Detectd) SARS-CoV-2 (PCR) (Not Detectd) 06/22/22 06/22/22 06/22/22 Range/Units 11:12 11:12 11:12 WBC (3.8-10.6) k/uL RBC (4.30-5.90) m/uL Hgb (13.0-17.5) gm/dL Hct (39.0-53.0) % MCV (80.0-100.0) fL MCH (25.0-35.0) pg MCHC (31.0-37.0) g/dL RDW (11.5-15.5) % Plt Count (150-450) k/uL MPV Neutrophils % % Lymphocytes % % Monocytes % % Eosinophils % % Basophils % % Neutrophils # (1.3-7.7) k/uL Lymphocytes # (1.0-4.8) k/uL Monocytes # (0-1.0) k/uL Eosinophils # (0-0.7) k/uL Basophils # (0-0.2) k/uL Manual Slide Review RBC Morphology Hyperchromasia D-Dimer (<0.60) mg/L FEU Sodium (137-145) mmol/L Potassium (3.5-5.1) mmol/L Chloride (98-107) mmol/L Carbon Dioxide (22-30) mmol/L Anion Gap mmol/L BUN (9-20) mg/dL Creatinine (0.66-1.25) mg/dL Est GFR (CKD-EPI)AfAm (>60 ml/min/1.73 sqM) Est GFR (CKD-EPI)NonAf (>60 ml/min/1.73 sqM) Glucose (74-99) mg/dL Calcium (8.4-10.2) mg/dL Magnesium (1.6-2.3) mg/dL Total Bilirubin (0.2-1.3) mg/dL AST (17-59) U/L ALT (4-49) U/L Alkaline Phosphatase (38-126) U/L Creatine Kinase (55-170) U/L Troponin I <0.012 (0.000-0.034) ng/mL NT-Pro-B Natriuret Pep 102 pg/mL Total Protein (6.3-8.2) g/dL Albumin (3.5-5.0) g/dL Influenza Type A (PCR) Not Detected (Not Detectd) Influenza Type B (PCR) Not Detected (Not Detectd) RSV (PCR) Not Detected (Not Detectd) SARS-CoV-2 (PCR) Not Detected (Not Detectd) - Radiology Data Interpreted by me: Imaging reviewed by me shows no evidence of acute processes at this time. Disposition Clinical Impression: Dehydration, Generalized weakness, Failure to thrive, History of Graamjo's esophagus, Acute bronchospasm, Exertional dyspnea, PVCs (premature ventricular contractions) Disposition: ADMITTED IP TO THIS [facility] Condition: Fair Referrals: Talha Spencer MD [Primary Care Provider] - 1-2 days Decision Date: 06/22/22 Decision Time: 14:00
[2022-06-22 11:38] LABS: Basophils % (A) 0 %; Eosinophils # (A) 0.1 k/uL (0-0.7); Eosinophils % (A) 2 %; HCT 39.8 % (39.0-53.0); Lymphocytes # (A) 0.6 k/uL (1.0-4.8); Lymphocytes % (A) 17 %; MCH 28.7 pg (25.0-35.0); MCHC 35.1 g/dL (31.0-37.0); MCV 81.6 fL (80.0-100.0); Monocytes # (A) 0.3 k/uL (0-1.0); Monocytes % (A) 8 %; Neutrophils # (A) 2.6 k/uL (1.3-7.7); Neutrophils % (A) 70 %; RBC 4.87 m/uL (4.30-5.90); RDW 13.9 % (11.5-15.5); WBC 3.7 k/uL (3.8-10.6)
[2022-06-22 12:05] LABS: Calcium 8.5 mg/dL (8.4-10.2); Magnesium 1.8 mg/dL (1.6-2.3); Potassium 3.8 mmol/L (3.5-5.1); Total Protein 6.3 g/dL (6.3-8.2)
[2022-06-22 12:12] LABS: RBC Morphology Normal
[2022-06-22 12:13] LABS: Platelet Count 99 k/uL (150-450)
--- NOTE | 2022-06-22 12:14 | XR ---
EXAMINATION TYPE: XR chest 2V DATE OF EXAM: 06/22/2022 COMPARISON: 12/28/2021 HISTORY: Shortness of breath TECHNIQUE: Frontal and lateral views of the chest are obtained. FINDINGS: Scattered senescent parenchymal changes noted. Hyperinflation compatible with COPD. No evidence for infiltrate. No evidence for atelectasis. Heart size is stable. Mediastinal structures are stable and grossly unremarkable. No evidence for hilar prominence. Degenerative changes dorsal spine. IMPRESSION: 1. No evidence for acute pulmonary disease.
--- NOTE | 2022-06-22 12:15 | XR ---
EXAMINATION TYPE: XR KUB portable DATE OF EXAM: 06/22/2022 COMPARISON: NONE HISTORY: Pain TECHNIQUE: Single supine KUB image of the abdomen is obtained FINDINGS: Small bowel demonstrates no evidence for dilatation or air fluid levels. Gas and fecal material is seen in non-distended colon. No convincing evidence for pneumoperitoneum. No unusual calcifications. The lung bases are clear. The osseous structures are intact. IMPRESSION: 1. Overall nonobstructive bowel gas pattern.
[2022-06-22] MEDS ORDERED: ACETAMINOPHEN TAB 325 MG TAB PO PRN (14:27)
[2022-06-22] MEDS ORDERED: NALOXONE 0.4 MG/ML 1 ML VIAL IV PRN (14:27)
[2022-06-22] MEDS ORDERED: NITROGLYCERIN SL TABS 0.4 MG TAB SUBLINGUAL PRN (14:28)
[2022-06-22] MEDS: SODIUM CHLORIDE 0.9% 1,000 ML IV SCH (15:50)
[2022-06-22] MEDS: PANTOPRAZOLE 40 MG TABLET PO SCH (17:22)
--- NOTE | 2022-06-22 21:06 | P.HPIM ---
History of Present Illness H&P Date: 06/22/22 Chief Complaint: Generalized weakness Patient is a 86-year-old male with a known history of coronary artery disease status post stent placement, hyperlipidemia, GERD, history of prostate cancer, osteoarthritis, left carotid stenosis and prior history of smoking presents to [facility] with the complaints of generalized weakness and diarrhea for the past 3 days. Patient was also having shortness of breath and wheezing on admission. Aberrantly patient has not been eating very well. No commerce of fever or chills. Patient was seen at [facility] yesterday and was discharged home. Patient was brought to the hospital by her daughter. Patient is unable to provide history. INFORMATION was taken from the medical records and from her daughter at bedside. No prior history of COPD diagnosis. Patient worked as a music intern lifelong and no prior history of lung bases. Quit smoking about 50 years ago. Denied any cough or sputum production. No leg swelling. No recent illnesses. No recent antibiotic use. Chest x-ray showed no evidence for acute pulmonary disease. EKG showed sinus rhythm with occasional ventricular premature complexes. KUB x-ray showed o verall nonobstructive bowel gas pattern. Laboratory data showed WBC 3.7 hemoglobin 14.0 and platelets 99, d-dimer 0.43 Sodium 137 potassium 3.8 chloride 101, BUN 24 and creatinine 0.99, proBNP 102 troponin 1 negative and his creatinine kinase 125 Influenza A, B, RSV and Cogentin PCR not detected. Review of Systems Complete review of systems could not be apparent from the patient except as per HPI Past Medical History Past Medical History: Coronary Artery Disease (CAD), Cancer, Chest Pain / Angina, GERD/Reflux, Hyperlipidemia, Memory Impairment, Myocardial Infarction (MT), Osteoarthritis (OA) Additional Past Medical History / Comment(s): hx Prostate Cancer, PT rt shoulder r/t injury. 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 LEFT HAND SX. "whole in esophageal repair. 4 stents put in heart." egd Past Anesthesia/Blood Transfusion Reactions: No Reported Reaction Date of Last Stent Placement:: 01/14/14 Past Psychological History: No Psychological Hx Reported Smoking Status: Former smoker Past Alcohol Use History: Unable to Obtain Additional Past Alcohol Use History / Comment(s): Pt family states he quit smoking roughly in 2001 Past Drug Use History: None Reported - Past Family History Mother Family Medical History: Cancer Additional Family Medical History / Comment(s): LEUKEMIA Father Family Medical History: Cancer Additional Family Medical History / Comment(s): LUNG Medications and Allergies Home Medications Medication Instructions Recorded Confirmed Type Simvastatin [Zocor] 20 mg PO HS 01/12/14 06/22/22 History Losartan [Cozaar] 25 mg PO DAILY 12/04/21 06/22/22 History Metoprolol Tartrate [Lopressor] 25 mg PO HS 12/04/21 06/22/22 History Aspirin 81 mg PO DAILY 30 Days #30 tab 12/06/21 06/22/22 Rx Cyanocobalamin (Vitamin B-12) 1,000 mcg PO DAILY #30 tablet 12/06/21 06/22/22 Rx [Vitamin B-12] amLODIPine [Norvasc] 10 mg PO DAILY #30 tab 12/06/21 06/22/22 Rx levETIRAcetam [Keppra] 500 mg PO Q12HR #60 tab 12/06/21 06/22/22 Rx Nitroglycerin Sl Tabs [Nitrostat] 0.4 mg SUBLINGUAL Q5M PRN 12/28/21 06/22/22 History Isosorbide Mononitrate [Ismo] 10 mg PO BID 06/22/22 06/22/22 History Omeprazole 20 mg PO BID 06/22/22 06/22/22 History Allergies Allergy/AdvReac Type Severity Reaction Status Date / Time No Known Allergies Allergy Verified 06/22/22 14:34 Physical Exam Vitals: Vital Signs Temp Pulse Pulse Resp BP BP Pulse Ox 06/22/22 20:00 98.6 F 89 17 144/80 93 L 06/22/22 16:45 98.3 F 93 18 155/74 97 06/22/22 14:49 72 20 136/72 96 06/22/22 12:54 89 20 95 06/22/22 12:29 85 16 06/22/22 12:21 67 16 06/22/22 10:32 98.2 F 62 18 132/87 100 Intake and Output 06/22/22 06/22/22 06/22/22 06:59 14:59 22:59 Output Total 0 Balance 0 Output: Urine 0 Other: # Bowel Movements 2 Weight 92.986 kg 92.986 kg PHYSICAL EXAMINATION: Patient is lying in the bed comfortably, no acute distress, awake alert and oriented.. HEENT: Normocephalic. Neck is supple. Pupils reactive. Nostrils clear. Oral cavity is moist. Neck reveals no JVD, carotid bruits, or thyromegaly. CHEST EXAMINATION: Trachea is central. Symmetrical expansion. Bilateral diffuse wheezing. No rhonchi or crackles.. CARDIAC: Normal S1, S2 with no gallops. No murmurs ABDOMEN: Soft. Bowel sounds normal. No organomegaly. No abdominal bruits. Extremities: reveal no edema. No clubbing or cyanosis Neurologically awake, alert, oriented 2-3 with well-coordinated movements. No gross focal deficits noted. Cognitive impairment. Skin: No rash or skin lesions. Psychiatric: Coperative. Nonsuicidal Musculoskeletal: No joint swelling or deformity. Normal range of motion. Results CBC & Chem 7: 06/22/22 11:12 06/23/22 06:28 Labs: Abnormal Lab Results - Last 24 Hours (Table) 06/22/22 06/22/22 Range/Units 11:12 11:12 WBC 3.7 L (3.8-10.6) k/uL Plt Count 99 L (150-450) k/uL Lymphocytes # 0.6 L (1.0-4.8) k/uL BUN 24 H (9-20) mg/dL Glucose 101 H (74-99) mg/dL Thrombosis Risk Factor Assmnt - DVT/VTE Prophylaxis DVT/VTE Prophylaxis: Pharmacologic Prophylaxis ordered - Choose All That Apply Any of the Below Risk Factors Present?: Yes Each Factor Represents 1 point: Obesity (BMI >25) Other Risk Factors: Yes Each Risk Factor Represents 3 Points: Age 75 years or older Other congenital or acquired thrombophilia - If yes, enter type in comment: No Thrombosis Risk Factor Assessment Total Risk Factor Score: 4 Thrombosis Risk Factor Assessment Level: Moderate Risk Assessment and Plan Assessment: Acute bronchospasm possible underlying COPD Generalized weakness and diarrhea, dehydration. History of prostate cancer History of left carotid 90% stenosis as per patient Hyperlipidemia GERD Memory impairment Osteoarthritis Prior history of smoking History of seizures DVT prophylaxis with heparin subcu Plan: Patient will be continued on IV hydration with normal saline and encourage oral intake. We will start Solu-Medrol 40 mg every 8 hourly along with duo nebs and monitor respiratory status closely. Continue with aspirin and home blood pressure medications. GI and DVT prophylaxis. Continue to follow closely. Discussed with his daughter at bedside in detail. PTOT will be consulted. Time with Patient: Greater than 30
[2022-06-22] MEDS ORDERED: methylPREDNISolone SOD SUCCI 40 MG/ML 1 ML VIAL IV SCH (21:07)
[2022-06-22] MEDS: levETIRAcetam 500 MG TAB PO SCH (21:21)
[2022-06-22] MEDS: METOPROLOL TARTRATE 25 MG TAB PO SCH (21:22)
[2022-06-23] MEDS: HEPARIN SODIUM,PORCINE/PF 5,000 UNIT/0.5 ML SYRINGE SQ SCH ×3 (00:56→16:03)
[2022-06-23] MEDS: SODIUM CHLORIDE 0.9% 1,000 ML IV SCH (06:08)
[2022-06-23] MEDS: methylPREDNISolone SOD SUCCI 40 MG/ML 1 ML VIAL IV SCH ×3 (06:08→21:33)
[2022-06-23] MEDS: PANTOPRAZOLE 40 MG TABLET PO SCH ×2 (06:08→17:20)
[2022-06-23] MEDS ORDERED: NON FORMULARY DRUG (Fish Oil/Dha/Epa [Fish Oil 1,200 Mg Fish Oil] 1 EACH Capsule) PO SCH (09:00)
[2022-06-23] MEDS ORDERED: CYANOCOBALAMIN 500 MCG TAB PO SCH (09:00)
[2022-06-23] MEDS: levETIRAcetam 500 MG TAB PO SCH ×2 (09:38→21:33)
[2022-06-23] MEDS: amLODIPine 10 MG TAB PO SCH (09:38)
[2022-06-23] MEDS: ASPIRIN 81 MG PO SCH (09:38)
[2022-06-23] MEDS: MULTIVITAMINS, THERA 1 EACH TAB PO SCH (09:38)
[2022-06-23 10:49] LABS: African American GFR (CKD) 82.6 (60.0-200.0); BUN/Creat Ratio 19.36 Ratio (12.00-20.00); Blood Urea Nitrogen 18.7 mg/dL (9.0-27.0); Carbon Dioxide 23.6 mmol/L (20.0-27.5); Chloride 105 mmol/L (96-109); Glucose 149 mg/dL (70-110); Non-African American GFR(CKD) 71.2 (60.0-200.0); Potassium 4.8 mmol/L (3.5-5.5); Sodium 141 mmol/L (135-145)
[2022-06-23 10:58] LABS: Vitamin B12 >1800.0 pg/mL (200.0-944.0)
[2022-06-23 11:59] LABS: Basophils # (A) 0.01 X 10*3/uL (0.00-0.10); Basophils % (A) 0.4 %; Eosinophils # (A) 0 X 10*3/uL (0.04-0.35); Eosinophils % (A) 0 %; HCT 40.8 % (39.6-50.0); HGB 13.9 g/dL (13.0-17.0); Immature Grans, Automated 0.4 %; Lymphocytes # (A) 0.49 X 10*3/uL (0.90-5.00); Lymphocytes % (A) 17.8 %; MCH 27.8 pg (27.0-32.0); MCHC 34.1 g/dL (32.0-37.0); MCV 81.6 fL (80.0-97.0); Mean Platelet Volume 11.9 fL (9.5-12.2); Monocytes % (A) 3.6 %; NRBC Per 100 WBC 0 /100 WBCS (0.0-0.0); Neutrophils # (A) 2.14 X 10*3/uL (1.80-7.70); Neutrophils % (A) 77.8 %; Platelet Count 120 X 10*3/uL (140-440); RDW 13.2 % (11.5-14.5); WBC 2.75 X 10*3/uL (4.50-10.00)
[2022-06-23] MEDS: FLUTICASONE 50MCG/SPRAY NASAL 16GM EA NOSTRIL SCH (12:23)
[2022-06-23] MEDS: LOSARTAN 25 MG TAB PO SCH (12:29)
[2022-06-23] MEDS: ATORVASTATIN 10 MG TAB PO SCH (12:29)
[2022-06-23] MEDS: METOPROLOL TARTRATE 25 MG TAB PO SCH (21:33)
[2022-06-24] MEDS: HEPARIN SODIUM,PORCINE/PF 5,000 UNIT/0.5 ML SYRINGE SQ SCH ×2 (00:12→07:48)
[2022-06-24] MEDS: PANTOPRAZOLE 40 MG TABLET PO SCH (06:34)
[2022-06-24 07:40] VITALS: BP 157/79; PULSE 75; RESP 16; TEMP 97.9
[2022-06-24] MEDS: ASPIRIN 81 MG PO SCH (07:48)
[2022-06-24] MEDS: amLODIPine 10 MG TAB PO SCH (07:49)
[2022-06-24] MEDS: levETIRAcetam 500 MG TAB PO SCH (07:49)
[2022-06-24] MEDS: MULTIVITAMINS, THERA 1 EACH TAB PO SCH (07:49)
[2022-06-24] MEDS: FLUTICASONE 50MCG/SPRAY NASAL 16GM EA NOSTRIL SCH (07:50)
[2022-06-24] MEDS ORDERED: methylPREDNISolone SOD SUCCI 40 MG/ML 1 ML VIAL IV SCH (09:00)
[2022-06-24 09:13] LABS: African American GFR (CKD) 94.4 (60.0-200.0); Anion Gap 9.5 mmol/L (10.00-18.00); BUN/Creat Ratio 27.5 Ratio (12.00-20.00); Calcium 9.2 mg/dL (8.7-10.3); Carbon Dioxide 23.5 mmol/L (20.0-27.5); Non-African American GFR(CKD) 81.5 (60.0-200.0); Potassium 4.7 mmol/L (3.5-5.5)
[2022-06-24 09:28] LABS: Basophils # (A) 0.01 X 10*3/uL (0.00-0.10); Basophils % (A) 0.2 %; Eosinophils # (A) 0 X 10*3/uL (0.04-0.35); Eosinophils % (A) 0 %; HCT 39.2 % (39.6-50.0); HGB 13.5 g/dL (13.0-17.0); Immature Grans, Automated 0.4 %; MCH 27.6 pg (27.0-32.0); MCHC 34.4 g/dL (32.0-37.0); MCV 80.2 fL (80.0-97.0); Mean Platelet Volume 12.1 fL (9.5-12.2); Monocytes # (A) 0.21 X 10*3/uL (0.20-1.00); Monocytes % (A) 3.9 %; NRBC Per 100 WBC 0 /100 WBCS (0.0-0.0); Neutrophils # (A) 4.59 X 10*3/uL (1.80-7.70); Neutrophils % (A) 84.5 %; Platelet Count 127 X 10*3/uL (140-440); RBC 4.89 X 10*6/uL (4.40-5.60); RDW 13.1 % (11.5-14.5); WBC 5.43 X 10*3/uL (4.50-10.00)
[2022-06-24] MEDS: LOSARTAN 25 MG TAB PO SCH (13:56)
[2022-06-24] MEDS: ATORVASTATIN 10 MG TAB PO SCH (13:56)
== END 2022-06-24 14:11 | disposition home or self-care (01) | DRG 192 ==
LOC: EC 10:27 → 4SSUR 14:29
PROVIDERS: ADMIT Internal Medicine; ATTEND Internal Medicine
DX: J44.9 Chronic obstructive pulmonary disease, unspecified (principal); E78.5 Hyperlipidemia, unspecified; R19.7 Diarrhea, unspecified; J98.01 Acute bronchospasm; R62.7 Adult failure to thrive; K22.70 Barrett's esophagus without dysplasia; Z20.822 Contact with and (suspected) exposure to COVID-19; E86.0 Dehydration; K21.9 Gastro-esophageal reflux disease without esophagitis; M19.90 Unspecified osteoarthritis, unspecified site; Z87.891 Personal history of nicotine dependence; I25.2 Old myocardial infarction; Z79.82 Long term (current) use of aspirin; Z79.899 Other long term (current) drug therapy; Z80.6 Family history of leukemia; Z85.46 Personal history of malignant neoplasm of prostate; Z95.5 Presence of coronary angioplasty implant and graft; Z98.42 Cataract extraction status, left eye; Z96.1 Presence of intraocular lens; Z86.79 Personal history of other diseases of the circulatory system; I25.10 Atherosclerotic heart disease of native coronary artery without angina pectoris
CPT/HCPCS: 36415; 71046; 74018; 80048; 80053; 82550; 82607; 82747; 83735; 83880; 84443; 84484; 85025; 85379; 87636; 93005; 94640; 96360; 99285

== ENCOUNTER 2023-04-11 09:30 | Emergency (ER) | payer MEDICARE, OTHER ==
--- NOTE | 2023-04-11 09:42 | ED ---
General Adult HPI - General Chief complaint: Fall Stated complaint: Fall Time Seen by Provider: 04/11/23 09:30 Source: patient, RN notes reviewed, old records reviewed Mode of arrival: EMS Limitations: no limitations - History of Present Illness Initial comments: This is an 87-year-old male who presents to the emergency department stating that he was trying to empty his Zazueta catheter and he was on 1 foot for second lost his balance and fell hit the back of his head. Patient denies any loss of consciousness. Patient denies any episode of being dazed. Patient denies nausea vomiting. Patient has neck pain patient Nuys any numbness weakness. Patient Nuys any back pain patient Nuys chest pain abdominal pain. Patient denies any recent fever chills or cough. Patient Nuys any other symptoms at this time. Patient states normally if he falls it would be difficult for him to get up if there was nothing to grab onto and that was the case this morning. - Related Data Home Medications Medication Instructions Recorded Confirmed Simvastatin [Zocor] 20 mg PO HS 01/12/14 06/22/22 Losartan [Cozaar] 25 mg PO DAILY 12/04/21 06/22/22 Metoprolol Tartrate [Lopressor] 25 mg PO HS 12/04/21 06/22/22 Nitroglycerin Sl Tabs [Nitrostat] 0.4 mg SUBLINGUAL Q5M PRN 12/28/21 06/22/22 Isosorbide Mononitrate [Ismo] 10 mg PO BID 06/22/22 06/22/22 Omeprazole 20 mg PO BID 06/22/22 06/22/22 Previous Rx's Medication Instructions Recorded Aspirin 81 mg PO DAILY 30 Days #30 tab 12/06/21 Cyanocobalamin (Vitamin B-12) 1,000 mcg PO DAILY #30 tablet 12/06/21 [Vitamin B-12] amLODIPine [Norvasc] 10 mg PO DAILY #30 tab 12/06/21 levETIRAcetam [Keppra] 500 mg PO Q12HR #60 tab 12/06/21 predniSONE [Deltasone] 40 mg PO DAILY 2 Days #4 tab 06/24/22 Allergies Allergy/AdvReac Type Severity Reaction Status Date / Time No Known Allergies Allergy Verified 04/11/23 09:35 Review of Systems ROS Statement: Those systems with pertinent positive or pertinent negative responses have been documented in the HPI. ROS Other: All systems not noted in ROS Statement are negative. Past Medical History Past Medical History: Coronary Artery Disease (CAD), Cancer, Chest Pain / Angina, CVA/TIA, GERD/Reflux, Hyperlipidemia, Memory Impairment, Myocardial Infarction (ND), Osteoarthritis (OA) Additional Past Medical History / Comment(s): hx Prostate Cancer, PT rt shoulder r/t injury. 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 LEFT HAND SX. "whole in esophageal repair. 4 stents put in heart." egd Past Anesthesia/Blood Transfusion Reactions: No Reported Reaction Date of Last Stent Placement:: 01/14/14 Past Psychological History: No Psychological Hx Reported Smoking Status: Former smoker Past Alcohol Use History: Unable to Obtain Past Drug Use History: None Reported - Past Family History Mother Family Medical History: Cancer Additional Family Medical History / Comment(s): LEUKEMIA Father Family Medical History: Cancer Additional Family Medical History / Comment(s): LUNG General Exam - General Exam Comments Initial Comments: GENERAL: Patient is well-developed and well-nourished. Patient is nontoxic and well- hydrated and is in no acute distress. ENT: Neck is soft and supple. No significant lymphadenopathy is noted. Oropharynx is clear. Moist mucous membranes. Patient has a c-collar on. There is no thyroid enlargement and no masses were felt. EYES: The sclera were anicteric and conjunctiva were pink and moist. Extraocular movements were intact and pupils were equal round and reactive to light. Eyelids were unremarkable. PULMONARY: Unlabored respirations. Good breath sounds bilaterally. No audible rales rhonchi or wheezing was noted. CARDIOVASCULAR: There is a regular rate and rhythm without any murmurs gallops or rubs. ABDOMEN: Soft and nontender with normal bowel sounds. SKIN: Skin is clear with no lesions or rashes and otherwise unremarkable. NEUROLOGIC: Patient is alert and oriented x3. Cranial nerves II through XII are grossly intact. Motor and sensory are also intact. Normal speech, volume and content. Symmetrical smile. MUSCULOSKELETAL: Normal extremities with adequate strength and full range of motion. No lower extremity swelling or edema. No calf tenderness. LYMPHATICS: No significant lymphadenopathy is noted PSYCHIATRIC: Normal psychiatric evaluation. Limitations: no limitations Course Vital Signs 04/11/23 09:32 Temperature 98.2 F Pulse Rate 84 Respiratory 18 Rate Blood Pressure 145/88 O2 Sat by Pulse 96 Oximetry Medical Decision Making - Medical Decision Making Was pt. sent in by a medical professional or institution (, RAIN, COMPUTER LABORATORY TECHNICIAN, urgent care, hospital, or [facility]...) When possible be specific @ -No Did you speak to anyone other than the patient for history (EMS, parent, family, police, friend...)? What history was obtained from this source @ -EMS gave some of the history Did you review nursing and triage notes (agree or disagree)? Why? @ -I reviewed and agree with nursing and triage notes Were old charts reviewed (outside hosp., previous admission, EMS record, old EKG, old radiological studies, urgent care reports/EKG's, [facility] records)? Report findings @ -I reviewed prior charts and lab work on this patient Differential Diagnosis (chest pain, altered mental status, abdominal pain women, abdominal pain men, vaginal bleeding, weakness, fever, dyspnea, syncope, headache, dizziness, GI bleed, back pain, seizure, CVA, palpatations, mental health, musculoskeletal)? @ -Skull fracture, cervical spine fracture, subdural, epidural, intraparenchymal hemorrhage, subarachnoid hemorrhage EKG interpreted by me (3pts min.). @ -As above X-rays interpreted by me (1pt min.). @ -None done CT interpreted by me (1pt min.). @ -CT of the brain and C-spine show no acute abnormality U/S interpreted by me (1pt. min.). @ -None done What testing was considered but not performed or refused? (CT, X-rays, U/S, labs)? Why? @ -None What meds were considered but not given or refused? Why? @ -None Did you discuss the management of the patient with other professionals (professionals i.e. RAIN Summers, COMPUTER LABORATORY TECHNICIAN, lab, RT, psych nurse, drug abuse social worker, packager or packer and weigher, teacher, police officer, rifle case repairer)? Give summary @ -No Was smoking cessation discussed for >3mins.? @ -No Was critical care preformed (if so, how long)? @ -No Were there social determinants of health that impacted care today? How? (Homelessness, low income, unemployed, alcoholism, drug addiction, transportation, low edu. Level, literacy, decrease access to med. care, assisted, rehab)? @ -No Was there de-escalation of care discussed even if they declined (Discuss DNR or withdrawal of care, Hospice)? DNR status @ -No What co-morbidities impacted this encounter? (DM, HTN, Smoking, COPD, CAD, Cancer, CVA, ARF, Chemo, Hep., AIDS, mental health diagnosis, sleep apnea, morbid obesity)? @ -None Was patient admitted / discharged? Hospital course, mention meds given and route, prescriptions, significant lab abnormalities, going to OR and other pertinent info. @ -Patient was feeling considerably better after the collar was removed he had no complaints patient will be discharged home Undiagnosed new problem with uncertain prognosis? @ -No Drug Therapy requiring intensive monitoring for toxicity (Heparin, Nitro, Insulin, Cardizem)? @ -No Were any procedures done? @ -No Diagnosis/symptom? @ -Fall, head injury Acute, or Chronic, or Acute on Chronic? @ -Acute Uncomplicated (without systemic symptoms) or Complicated (systemic symptoms)? @ -Complicated Side effects of treatment? @ -No Exacerbation, Progression, or Severe Exacerbation? @ -No Poses a threat to life or bodily function? How? (Chest pain, [place], ND, pneumonia, PE, COPD, DKA, ARF, appy, cholecystitis, CVA, Diverticulitis, Homicidal, Suicidal, threat to staff... and all critical care pts) @ -No Disposition Clinical Impression: Fall, Head injury Disposition: HOME SELF-CARE Condition: Good Instructions (If sedation given, give patient instructions): Fall Prevention for Older Adults (ED), Head Injury (ED) Is patient prescribed a controlled substance at d/c from ED?: No Referrals: Talha Spencer [Primary Care Provider] - 1-2 days Time of Disposition: 10:48
[2023-04-11 10:02] VITALS: TEMP 98.2
--- NOTE | 2023-04-11 10:34 | CT ---
EXAMINATION TYPE: CT brain cspine wo con CT DLP: 1573.3 mGycm, Automated exposure control for dose reduction was used. DATE OF EXAM: 04/11/2023 10:17 AM COMPARISON: 12/04/2021 CLINICAL INDICATION:Male, 87 years old with history of Trauma; Trauma, Fall TECHNIQUE: Brain: Multiple axial CT images of the brain were obtained without IV contrast. Cspine: Axial CT images from the skull base to the inferior aspect of T2 we obtained without intraven ous contrast. Coronal and sagittal reformatted images were also reviewed. FINDINGS: Brain: Extra-axial spaces: No abnormal extra-axial fluid collections. Ventricular system: Dilatation in proportion to cerebral atrophy. Cerebral parenchyma: Prominent left basal ganglia perivascular space versus remote injury. Cerebral a trophy. No acute intraparenchymal hemorrhage or mass effect. The mckinnon-white junction is well differe ntiated. Scattered hypoattenuating areas are seen within the white matter. Cerebellum: Unremarkable. Mass effect: No evidence of midline shift. Intracranial vasculature: Atherosclerotic calcifications of the intracranial vessels. Soft tissues: Normal. Calvarium/osseous structures: No depressed skull fracture. Paranasal sinuses and mastoid air cells: Mild scattered mucosal thickening and or secretions. Visualized orbits: Bilaterally aphakia. Cervical spine: Fracture: None. Osseous structures: Multilevel degenerative disc disease changes with endplate spurring and disc oste ophyte complex's. Vertebral alignment: Within normal limits. Spinal canal/Neural Foramina: No evidence of significant spinal canal narrowing. No evidence for sign ificant neural foraminal stenosis. Neck soft tissues: Prevertebral soft tissues are within normal limits. Other: The airway is patent. Stent graft within the left common carotid artery and carotid bifurcatio n. Small bilateral pleural effusions. IMPRESSION: 1. No acute intracranial process. 2. Nonspecific white matter changes, likely secondary to chronic small vessel ischemic disease. 3. No evidence of cervical spine fracture. 4. Moderate to severe multilevel degenerative disc disease. 5. Partially visualized bilateral pleural effusions.
[2023-04-11 11:05] VITALS: BP 154/86; PULSE 77; RESP 16
== END 2023-04-11 11:34 | disposition home or self-care (01) ==
LOC: EC 09:30
DX: S09.90XA Unspecified injury of head, initial encounter (principal); E78.5 Hyperlipidemia, unspecified; I25.10 Atherosclerotic heart disease of native coronary artery without angina pectoris; I25.2 Old myocardial infarction; K21.9 Gastro-esophageal reflux disease without esophagitis; M19.90 Unspecified osteoarthritis, unspecified site; Z79.899 Other long term (current) drug therapy; Z87.891 Personal history of nicotine dependence; Z95.5 Presence of coronary angioplasty implant and graft; W01.0XXA Fall on same level from slipping, tripping and stumbling without subsequent striking against object, initial encounter
CPT/HCPCS: 70450; 72125; 99284

== ENCOUNTER 2023-04-15 08:43 | Emergency (ER) | payer MEDICARE, OTHER ==
--- NOTE | 2023-04-15 09:09 | ED ---
General Adult HPI - General Chief complaint: Fall Stated complaint: AMS,Freq Falls Time Seen by Provider: 04/15/23 08:45 Source: patient, family, EMS, RN notes reviewed Mode of arrival: EMS Limitations: no limitations - History of Present Illness Initial comments: Patient is a pleasant 87-year-old male present to the emergency department with weakness. Patient has had multiple falls over the past week. Patient has been more weak than normal. Patient has not been eating or drinking well. Last known well was 8 PM. Patient was found on the floor at 5 PM and helped into bed. Patient has continued weakness. Patient did strike his left side of the face. Patient is on aspirin and Plavix. did crushed up aspirin and provided to him when she noticed he was weak this morning. Patient was seen in the emergency department and had scan done recently. - Related Data Home Medications Medication Instructions Recorded Confirmed Simvastatin [Zocor] 20 mg PO HS 01/12/14 04/15/23 Losartan [Cozaar] 25 mg PO DAILY 12/04/21 04/15/23 Metoprolol Tartrate [Lopressor] 25 mg PO BID 12/04/21 04/15/23 Nitroglycerin Sl Tabs [Nitrostat] 0.4 mg SUBLINGUAL Q5M PRN 12/28/21 04/15/23 Isosorbide Mononitrate [Ismo] 10 mg PO BID 06/22/22 04/15/23 Omeprazole 20 mg PO BID 06/22/22 04/15/23 Albuterol Sulfate [Albuterol 2 puff PO RT-QID PRN 04/15/23 04/15/23 Sulfate Hfa] Clopidogrel [Plavix] 75 mg PO DAILY 04/15/23 04/15/23 Fluticasone Nasal [place] [Flonase 1 spray EA NOSTRIL BID 04/15/23 04/15/23 Nasal [place]] Previous Rx's Medication Instructions Recorded Aspirin 81 mg PO DAILY 30 Days #30 tab 12/06/21 Cyanocobalamin (Vitamin B-12) 1,000 mcg PO DAILY #30 tablet 12/06/21 [Vitamin B-12] levETIRAcetam [Keppra] 500 mg PO Q12HR #60 tab 12/06/21 Allergies Allergy/AdvReac Type Severity Reaction Status Date / Time No Known Allergies Allergy Verified 04/15/23 10:02 Review of Systems ROS Statement: Those systems with pertinent positive or pertinent negative responses have been documented in the HPI. ROS Other: All systems not noted in ROS Statement are negative. Constitutional: Denies: fever Eyes: Denies: eye pain ENT: Denies: ear pain Cardiovascular: Denies: chest pain Endocrine: Denies: fatigue Neurological: Reports: as per HPI, headache, weakness Past Medical History Past Medical History: Coronary Artery Disease (CAD), Cancer, Chest Pain / Angina, CVA/TIA, GERD/Reflux, Hyperlipidemia, Memory Impairment, Myocardial Infarction (AR), Osteoarthritis (OA) Additional Past Medical History / Comment(s): hx Prostate Cancer, PT rt shoulder r/t injury. 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 LEFT HAND SX. "whole in esophageal repair. 4 stents put in heart." egd Past Anesthesia/Blood Transfusion Reactions: No Reported Reaction Date of Last Stent Placement:: 01/14/14 Past Psychological History: No Psychological Hx Reported Smoking Status: Former smoker Past Alcohol Use History: Unable to Obtain Past Drug Use History: None Reported - Past Family History Mother Family Medical History: Cancer Additional Family Medical History / Comment(s): LEUKEMIA Father Family Medical History: Cancer Additional Family Medical History / Comment(s): LUNG General Exam Limitations: no limitations General appearance: alert, in no apparent distress Head exam: Present: normocephalic Eye exam: Present: normal appearance, other (Eyes deviated towards the right. Unable to move past midline) ENT exam: Present: normal oropharynx Neck exam: Present: normal inspection. Absent: tenderness Respiratory exam: Present: normal lung sounds bilaterally Cardiovascular Exam: Present: regular rate, normal rhythm GI/Abdominal exam: Present: soft. Absent: tenderness Extremities exam: Present: normal inspection, full ROM. Absent: tenderness Neurological exam: Present: alert Expanded Neurological exam: Present: protecting the airway, other (Unable to test for sensation secondary to patient having problems with complaint) Patient oriented to: Present: person, place. Absent: time Speech: Present: fluid speech Cranial nerves: EOM's Intact: Abnormal Left, Facial Palsy with Forehead Movement: Abnormal Left Motor strength exam: RUE: 5, LUE: 4, RLE: 5, LLE: 4 Eye Response: (4) open spontaneously Motor Response: (6) obeys commands Verbal Response: (4) confused conversation Psychiatric exam: Present: normal affect, normal mood Skin exam: Present: abrasion (Left maxillary region) Course Vital Signs 04/15/23 04/15/23 04/15/23 08:52 09:31 10:00 Temperature 99.1 F Pulse Rate 87 92 90 Respiratory 18 18 18 Rate Blood Pressure 158/108 176/97 180/103 O2 Sat by Pulse 91 L 95 95 Oximetry EKG Findings - EKG Results: EKG: interpreted by [facility] (Left axis. Nonspecific ST), sinus rhythm, normal QRS Medical Decision Making - Medical Decision Making 10:14 AM: Case was discussed with Dr. Carney who agrees with transfer to [facility]. He is aware patient is on aspirin and Plavix. Recommends no reversal. Does recommend keeping systolic blood pressure under 160. [facility] has been contacted for transfer and they will call back. Was pt. sent in by a medical professional or institution (, PA, PER DIEM CLERK, urgent care, hospital, or senior living...) When possible be specific @ -No Did you speak to anyone other than the patient for history (EMS, parent, family, police, friend...)? What history was obtained from this source @ -EMS helps provide history as patient is somewhat a poor historian does arrive shortly after and helps provide and confirm further history Did you review nursing and triage notes (agree or disagree)? Why? @ -Yes and agree. Were old charts reviewed (outside hosp., previous admission, EMS record, old EKG, old radiological studies, urgent care reports/EKG's, senior living records)? Report findings @ -Previous CT reviewed Differential Diagnosis (chest pain, altered mental status, abdominal pain women, abdominal pain men, vaginal bleeding, weakness, fever, dyspnea, syncope, headache, dizziness, GI bleed, back pain, seizure, CVA, palpatations, mental health, musculoskeletal)? @ -Differential Weakness: Hypoglycemia, shock, sepsis, hyponatremia, anemia, infection, AR, ETOH, adverse medicine reaction, overdose, stroke, this is not meant to be an all-inclusive list. EKG interpreted by me (3pts min.). @ -As above X-rays interpreted by me (1pt min.). @ -None done CT interpreted by me (1pt min.). @ -CT scan shows right subdural hematoma U/S interpreted by me (1pt. min.). @ -None done What testing was considered but not performed or refused? (CT, X-rays, U/S, labs)? Why? @ -None What meds were considered but not given or refused? Why? @ -None Did you discuss the management of the patient with other professionals (yuly danielle i.e. , PA, PER DIEM CLERK, lab, RT, psych nurse, manager social responsibility, stenciling machine tender, teacher, bank secrecy act officer, showcase maker)? Give summary @ -Case was discussed with Dr. Carney, see above. Patient will be transferred Was smoking cessation discussed for >3mins.? @ -No Was critical care preformed (if so, how long)? @ -32 minutes critical care time provided Were there social determinants of health that impacted care today? How? (Homelessness, low income, unemployed, alcoholism, drug addiction, transportat ion, low edu. Level, literacy, decrease access to med. care, usp, rehab)? @ -No Was there de-escalation of care discussed even if they declined (Discuss DNR or withdrawal of care, Hospice)? DNR status @ -No What co-morbidities impacted this encounter? (DM, HTN, Smoking, COPD, CAD, Cancer, CVA, ARF, Chemo, Hep., AIDS, mental health diagnosis, sleep apnea, morbid obesity)? @ -None Was patient admitted / discharged? Hospital course, mention meds given and route, prescriptions, significant lab abnormalities, going to OR and other pertinent info. @ -Patient reevaluated. Patient and family are updated on results and plan. Patient will be transferred. [facility]. Case was also discussed with Dr. Queen, who will accept transfer Undiagnosed new problem with uncertain prognosis? @ -No Drug Therapy requiring intensive monitoring for toxicity (Heparin, Nitro, Ins ulin, Cardizem)? @ -Cardene drip for blood pressure Were any procedures done? @ -No Diagnosis/symptom? @ -Subdural hematoma Acute, or Chronic, or Acute on Chronic? @ -Acute Uncomplicated (without systemic symptoms) or Complicated (systemic symptoms)? @ -Complicated with left-sided weakness Side effects of treatment? @ -No Exacerbation, Progression, or Severe Exacerbation? @ -No Poses a threat to life or bodily function? How? (Chest pain, USA, AR, pneumonia, PE, COPD, DKA, ARF, appy, cholecystitis, CVA, Diverticulitis, Homicidal, Suicidal, threat to staff... and all critical care pts) @ -Threat to neurological function - Lab Data Result diagrams: 04/15/23 09:11 04/15/23 09:11 Lab Results 04/15/23 04/15/23 04/15/23 Range/Units 09:11 09:11 09:11 WBC 5.6 (3.8-10.6) k/uL RBC 4.51 (4.30-5.90) m/uL Hgb 13.0 (13.0-17.5) gm/dL Hct 36.1 L (39.0-53.0) % MCV 80.1 (80.0-100.0) fL MCH 28.7 (25.0-35.0) pg MCHC 35.9 (31.0-37.0) g/dL RDW 13.7 (11.5-15.5) % Plt Count 138 L (150-450) k/uL MPV 9.3 Neutrophils % 83 % Lymphocytes % 9 % Monocytes % 6 % Eosinophils % 1 % Basophils % 0 % Neutrophils # 4.7 (1.3-7.7) k/uL Lymphocytes # 0.5 L (1.0-4.8) k/uL Monocytes # 0.3 (0-1.0) k/uL Eosinophils # 0.0 (0-0.7) k/uL Basophils # 0.0 (0-0.2) k/uL Poikilocytosis Slight PT 11.6 (10.0-12.5) sec INR 1.1 (<1.2) APTT 23.8 (22.0-30.0) sec Sodium 134 L (137-145) mmol/L Potassium 3.8 (3.5-5.1) mmol/L Chloride 103 (98-107) mmol/L Carbon Dioxide 19 L (22-30) mmol/L Anion Gap 12 mmol/L BUN 16 (9-20) mg/dL Creatinine 0.79 (0.66-1.25) mg/dL Est GFR (CKD-EPI)AfAm >90 (>60 ml/min/1.73 sqM) Est GFR (CKD-EPI)NonAf 82 (>60 ml/min/1.73 sqM) Glucose 141 H (74-99) mg/dL Calcium 8.8 (8.4-10.2) mg/dL Total Bilirubin 1.6 H (0.2-1.3) mg/dL AST 20 (17-59) U/L ALT 14 (4-49) U/L Alkaline Phosphatase 87 (38-126) U/L Creatine Kinase 95 (55-170) U/L Total Protein 6.4 (6.3-8.2) g/dL Albumin 4.0 (3.5-5.0) g/dL Critical Care Time Critical Care Time: Yes Total Critical Care Time: 32 Disposition Clinical Impression: Subdural hematoma Disposition: OTHER INSTITUTION NOT DEFINED Is patient prescribed a controlled substance at d/c from ED?: No Referrals: Talha Spencer [Primary Care Provider] - 1-2 days Time of Disposition: 10:26 - Out of Hospital Transfer - Req. Specs Out of Hospital Transfer - Requested Specifics: Other Emergency Center
[2023-04-15 09:16] VITALS: RESP 18; TEMP 99.1
[2023-04-15 09:36] LABS: Basophils % (A) 0 %; Eosinophils % (A) 1 %; HCT 36.1 % (39.0-53.0); Lymphocytes # (A) 0.5 k/uL (1.0-4.8); Lymphocytes % (A) 9 %; MCH 28.7 pg (25.0-35.0); MCHC 35.9 g/dL (31.0-37.0); MCV 80.1 fL (80.0-100.0); Mean Platelet Volume 9.3; Monocytes # (A) 0.3 k/uL (0-1.0); Monocytes % (A) 6 %; Neutrophils # (A) 4.7 k/uL (1.3-7.7); Neutrophils % (A) 83 %; Platelet Count 138 k/uL (150-450); Poikilocytosis Slight; RBC 4.51 m/uL (4.30-5.90); RDW 13.7 % (11.5-15.5); WBC 5.6 k/uL (3.8-10.6)
[2023-04-15 09:46] LABS: INR 1.1 (<1.2)
[2023-04-15 09:47] LABS: Partial Thromboplastin Time 23.8 sec (22.0-30.0); Prothrombin Time 11.6 sec (10.0-12.5)
[2023-04-15 09:51] LABS: ALT 14 U/L (4-49); AST 20 U/L (17-59); African American GFR (CKD) >90 (>60 ml/min/1.73 sqM); Alkaline Phosphatase 87 U/L (38-126); Anion Gap 12 mmol/L; Blood Urea Nitrogen 16 mg/dL (9-20); Calcium 8.8 mg/dL (8.4-10.2); Carbon Dioxide 19 mmol/L (22-30); Chloride 103 mmol/L (98-107); Creatine Kinase 95 U/L (55-170); Glucose 141 mg/dL (74-99); Non-African American GFR(CKD) 82 (>60 ml/min/1.73 sqM); Potassium 3.8 mmol/L (3.5-5.1); Sodium 134 mmol/L (137-145); Total Bilirubin 1.6 mg/dL (0.2-1.3); Total Protein 6.4 g/dL (6.3-8.2)
--- NOTE | 2023-04-15 10:00 | CT ---
EXAMINATION TYPE: CT brain wo con CT DLP: 1230 mGycm, Automated exposure control for dose reduction was used. DATE OF EXAM: 04/15/2023 9:48 AM COMPARISON: 04/11/2023. CLINICAL INDICATION:Male, 87 years old with history of Neuro deficit, acute, stroke suspected, AMS. S troke suspected TECHNIQUE: Brain: Axial CT images of the brain were obtained with coronal and sagittal reformats created and rev iewed. Contrast used: None. Oral contrast used: None. FINDINGS: Brain: Extra-axial spaces: Extra-axial high density fluid collection along the right cerebrum with mass effe ct. Thickness measuring up to 12 mm. Ventricular system: Dilatation in proportion to cerebral atrophy. Cerebral parenchyma: Cerebral atrophy. No acute intraparenchymal hemorrhage. The mckinnon-white junction is well differentiated. Scattered hypoattenuating areas are seen within the white matter. Left basa l ganglia prior lacunar injury versus prominent perivascular space versus Cerebellum: Unremarkable. Mass effect: Mild leftward shift up to 5 mm. Intracranial vasculature: unremarkable Soft tissues: Normal. Calvarium/osseous structures: No depressed skull fracture. Paranasal sinuses and mastoid air cells: Mild scattered paranasal sinus disease. Visualized orbits: Bilateral aphakia. IMPRESSION: Right subdural hemorrhage with mass effect upon the right cerebrum. Findings communicated to Dr. Bennett Griffin DO on 04/15/2023 9:[address] Kishor Heller.
--- NOTE | 2023-04-15 10:25 | CT ---
EXAMINATION TYPE: CT angio head neck DATE OF EXAM: 04/15/2023 HISTORY: AMS. Stroke suspected COMPARISON: CT brain 04/15/2023 CT DLP: 588.5 mGycm. Automated Exposure Control for Dose Reduction was Utilized. TECHNIQUE: CTA scan of the neck is performed without and with IV Contrast, patient injected with 65 ML mL of Isovue 300, axial images are obtained, coronal and sagittal reformatted images are reviewed. Three-D reconstructed images are created on an independent workstation and reviewed. Source images are reviewed. FINDINGS: Carotid/Vascular Structures: There is a 3 vessel arch. Common carotid arteries bifurcate into internal and external carotid arteries without significant jasmin w limiting stenosis. Stent is present on the left. Vertebral arteries are codominant. Internal carotid arteries and vertebral arteries are patent to the skull base. Cervical of Felix: Vertebral basilar system appears normal. Posterior cerebral vasculature is unrema rkable. Internal carotid arteries bifurcate normally into A1 and M1 segments. The anterior communicating artery is patent. There is some prominence of the anterior communicating a rtery measuring 3 mm. A1 and A2 segments have a normal caliber. Left middle cerebral artery branches appear normal. Beyond the trifurcation of the right middle cereb ral artery branches there is attenuation of the vascular structures. Poor visualization of the more m id to distal branches on the right middle cerebral artery distribution. The right posterior communicating artery is patent. The left posterior communicating artery is patent. Other: Right subdural hematoma evident. IMPRESSION: 1. No flow-limiting stenosis bilateral carotid bifurcations. 2. Attenuation of mid and distal right middle cerebral artery branches. 3. Right subdural hematoma NASCET criteria was used in interpretation of this exam?
[2023-04-15] MEDS: niCARdipine 20 MG in SODIUM CHLORIDE 0.9% 192 ML IV SCH (10:36)
[2023-04-15 11:06] VITALS: BP 158/78; PULSE 78
--- NOTE | 2023-04-15 11:09 | XR ---
EXAMINATION TYPE: XR chest 1V portable DATE OF EXAM: 04/15/2023 10:52 AM CLINICAL INDICATION:Male, 87 years old with history of fall; COMPARISON: Chest radiographs from 06/20/2022. TECHNIQUE: XR chest 1V portable Frontal view of the chest. FINDINGS: Lungs/Pleura: There is no evidence of pleural effusion, focal consolidation, or pneumothorax. Pulmonary vascularity: Unremarkable. Heart/mediastinum: Cardiomediastinal silhouette is unremarkable. Musculoskeletal: No acute osseous pathology. Other findings: Left neck stent graft. IMPRESSION: No acute cardiopulmonary disease/process.
--- NOTE | 2023-04-15 11:16 | XR ---
EXAMINATION TYPE: XR pelvis AP view DATE OF EXAM: 04/15/2023 10:53 AM CLINICAL INDICATION:Male, 87 years old with history of fall; COMPARISON: 09/02/2020 TECHNIQUE: The pelvis was examined in a single projection. FINDINGS: There is no evidence of fracture or dislocation. There is no soft tissue abnormality. No a bnormal calcifications are present. Surgical clips project over the pelvis. The spine appears intact. The hips appear intact. Osteophyte formation of the superior acetabulum bilaterally with mild joint space narrowing. Excreted IV contrast in the bladder. Zazueta catheter in place. Multilevel degeneratio n changes of the spine. IMPRESSION: 1. No acute osseous pathology. 2. Multilevel degeneration changes of the spine. 3. Zazueta catheter in place. 4. Mild bilateral hip osteoarthrosis.
== END 2023-04-15 11:00 | disposition other institution (70) ==
LOC: EC 08:43
DX: S06.5X0A Traumatic subdural hemorrhage without loss of consciousness, initial encounter (principal); I25.10 Atherosclerotic heart disease of native coronary artery without angina pectoris; K21.9 Gastro-esophageal reflux disease without esophagitis; E78.5 Hyperlipidemia, unspecified; I10 Essential (primary) hypertension; M19.90 Unspecified osteoarthritis, unspecified site; I25.2 Old myocardial infarction; Z87.891 Personal history of nicotine dependence; Z79.1 Long term (current) use of non-steroidal anti-inflammatories (NSAID); Z79.899 Other long term (current) drug therapy; Z79.01 Long term (current) use of anticoagulants; Z86.73 Personal history of transient ischemic attack (TIA), and cerebral infarction without residual deficits; W19.XXXA Unspecified fall, initial encounter; Z79.02 Long term (current) use of antithrombotics/antiplatelets
CPT/HCPCS: 36415; 93005; 80053; 82550; 85025; 85610; 85730; 72170; 71045; 70496; 70450; 70498; 99291; 96365; Q9967; 96361; 96374; 96375